=== PATIENT | male | born 1985 | race Two or more races ===

== ENCOUNTER 2018-08-30 17:35 | Observation (INO) | payer OTHER ==
[2018-08-30] MEDS ORDERED: Succinylcholine/Normal Saline 100 MG/5 ML Syringe ONE (17:40)
[2018-08-30] MEDS ORDERED: Rocuronium 50 MG/5 ML Vial ONE (17:40)
[2018-08-30] MEDS ORDERED: Ketorolac 30 MG/ML SDV ONE (17:40)
[2018-08-30] MEDS ORDERED: Ondansetron 4 MG/2 ML SDV ONE (17:40)
[2018-08-30] MEDS ORDERED: Lidocaine 1% 6 ML ONE (17:40)
[2018-08-30] MEDS ORDERED: Lactated Ringers 2,000 ML ONE (17:40)
[2018-08-30] MEDS ORDERED: Propofol 200 MG/20 ML SDV ONE (17:41)
[2018-08-30] MEDS ORDERED: HYDROmorphone 0.5 MG/0.5 ML Syringe ONE (17:41)
[2018-08-30] MEDS ORDERED: Midazolam 1 MG/ML 2 ML SDV ONE (17:41)
[2018-08-30] MEDS ORDERED: fentaNYL 250 MCG/5 ML SDV ONE (17:41)
[2018-08-30] MEDS ORDERED: Sodium Chloride 0.9% 10 ML Syringe FLUSH PRN ×2 (17:48→19:53)
[2018-08-30] MEDS ORDERED: Lidocaine 1%/Sod Bicarbonate in NS 8.4% 1 ML Syringe IDERM PRN (17:48)
[2018-08-30] MEDS ORDERED: metroNIDAZOLE/Normal Saline 500 MG in Premix Bag 1 BAG IV ONE (17:49)
--- NOTE | 2018-08-30 17:51 | PCM.PREANE ---
Preanesthetic Assessment - Anesthesia/Transfusion/Family Hx Anesthesia History: Prior Anesthesia Without Reaction Family History of Anesthesia Reaction: No Transfusion History: No Prior Transfusion(s) Intubation History: Unknown - Review of Systems General: Fatigue, Malaise, Chills Pulmonary: No Symptoms (Smoke: off/on, ETOH: beers every other weekend) Cardiovascular: No Symptoms Gastrointestinal: No Symptoms, Diarrhea Neurological: No Symptoms, Tingling (bilateral fingers) Other: Reports: None (pancreatitis in 2016 with prior history of heavy alcohol consumption.), Diabetes (pre-diabetic: attempting to control with diet and exercise) - Physical Assessment NPO Status Date: 08/30/18 NPO Status Time: 13:00 Pulse: 92 O2 Sat by Pulse Oximetry: 100 Respiratory Rate: 16 Blood Pressure: 131/90 Temperature: 36.7 C Height: 1.78 m Weight: 99.79 kg ASA Class: 2E Mental Status: Alert & Oriented x3 Airway Class: Mallampati = 2 Dentition: Reports: Normal Dentition, Caries Thyro-Mental Finger Breadths: 3 Mouth Opening Finger Breadths: 3 ROM/Head Extension: Full Lungs: Clear to Auscultation, Normal Respiratory Effort Cardiovascular: Regular Rate, Regular Rhythm, No Murmurs - Allergies Allergies/Adverse Reactions: Allergies Allergy/AdvReac Type Severity Reaction Status Date / Time No Known Allergies Allergy Verified 08/30/18 17:53 - Anesthesia Plan Pre-Op Medication Ordered: None - Acknowledgements Anesthesia Type Planned: General Anesthesia Pt an Appropriate Candidate for the Planned Anesthesia: Yes Alternatives and Risks of Anesthesia Discussed w Pt/Guardian: Yes Pt/Guardian Understands and Agrees with Anesthesia Plan: Yes PreAnesthesia Questionnaire - HOME MEDS Home Medications: Home Meds . [No Known Home Meds] 08/30/18 [History] - CURRENT (IN HOUSE) MEDS Current Meds: Current Medications Discontinued Medications Fentanyl (Sublimaze) Confirm Administered Dose 250 mcg .ROUTE .STK-MED ONE Stop: 08/30/18 17:42 Hydromorphone HCl (Dilaudid) Confirm Administered Dose 0.5 mg .ROUTE .STK-MED ONE Stop: 08/30/18 17:42 Lidocaine HCl (Xylocaine-Mpf 1%) Confirm Administered Dose 6 mls @ as directed .ROUTE .STK-MED ONE Stop: 08/30/18 17:41 Lactated Ringer's (Ringers, Lactated) Confirm Administered Dose 2,000 mls @ as directed .ROUTE .STK-MED ONE Stop: 08/30/18 17:41 Ketorolac Tromethamine (Toradol) Confirm Administered Dose 30 mg .ROUTE .STK- MED ONE Stop: 08/30/18 17:41 Midazolam HCl (Versed 1 Mg/Ml) Confirm Administered Dose 2 mg .ROUTE .STK-MED ONE Stop: 08/30/18 17:42 Ondansetron HCl (Zofran) Confirm Administered Dose 4 mg .ROUTE .STK-MED ONE Stop: 08/30/18 17:41 Propofol (Diprivan 20 Ml) Confirm Administered Dose 400 mg .ROUTE .STK-MED ONE Stop: 08/30/18 17:42 Rocuronium [place] (Zemuron) Confirm Administered Dose 50 mg .ROUTE .STK-MED ONE Stop: 08/30/18 17:41 Succinylcholine Chloride (Succinylcholine In Ns Pf) Confirm Administered Dose 100 mg .ROUTE .STK-MED ONE Stop: 08/30/18 17:41
[2018-08-30] MEDS ORDERED: Lactated Ringers 1,000 ML IV SCH (18:00)
[2018-08-30] MEDS ORDERED: diphenhydrAMINE 50 MG/ML SDV IVPUSH PRN (19:31)
[2018-08-30] MEDS ORDERED: Albuterol 0.083% 2.5 MG/3 ML Neb Soln NEB PRN (19:31)
[2018-08-30] MEDS ORDERED: fentaNYL 100 MCG/2 ML SDV IVPUSH PRN (19:31)
[2018-08-30] MEDS ORDERED: Ondansetron 4 MG/2 ML SDV IVPUSH PRN ×2 (19:31→19:56)
[2018-08-30] MEDS ORDERED: ePHEDrine 50 MG/ML SDV IVPUSH PRN (19:31)
[2018-08-30] MEDS ORDERED: HYDROmorphone 0.5 MG/0.5 ML Syringe IVPUSH PRN ×2 (19:31→19:56)
[2018-08-30] MEDS ORDERED: Phenylephrine 1 MG in Sodium Chloride 0.9% 10 ML IV SCH (19:45)
--- NOTE | 2018-08-30 19:52 | PCM.OPNOTE ---
- General Post-Op/Procedure Note Date of Surgery/Procedure: 08/30/18 Operative Procedure(s): I&D hank rectal abscess Pre Op Diagnosis: hank rectal abscess Post-Op Diagnosis: hank rectal abscess Anesthesia Technique: MAC Primary Surgeon: Kingsley Goyal EBL in mLs: 5 Complications: None Condition: Good
[2018-08-30] MEDS ORDERED: Acetaminophen/HYDROcodone 325-5 MG Tab PO PRN (19:58)
--- NOTE | 2018-08-30 19:59 | PCM.POSTAN ---
POST ANESTHESIA ASSESSMENT - MENTAL STATUS Mental Status: Alert - VITAL SIGNS Pulse Rate: 100 SaO2: 99 (2LPM nasal cannula) Resp Rate: 12 Blood Pressure: 138/97 Temperature: 36.9 C - RESPIRATORY Respiratory Status: Respiratory Rate WNL, Airway Patent, O2 Saturation Stable, Supplemental Oxygen - CARDIOVASCULAR CV Status: Pulse Rate WNL, Blood Pressure Stable - GASTROINTESTINAL GI Status: No Symptoms - POST OP HYDRATION Hydration Status: Adequate & Stable
[2018-08-30] MEDS ORDERED: cefOXitin 1 GM in Premix Bag 1 BAG IV SCH (20:00)
[2018-08-30] MEDS ORDERED: metroNIDAZOLE/Normal Saline 500 MG in Premix Bag 1 BAG IV SCH (20:00)
[2018-08-30] MEDS ORDERED: 50% Dextrose in Water 50 ML Syringe IVPUSH PRN (22:33)
--- NOTE | 2018-08-30 22:43 | PCM.CONS ---
H&P History of Present Illness - General Date of Service: 08/30/18 Admit Problem/Dx: Admission Diagnosis/Problem Admission Diagnosis/Problem Perirectal abscess Source of Information: Patient, Family, Provider, RN Notes Reviewed History Limitations: Reports: Physical Impairment, Other - History of Present Illness Initial Comments - Free Text/Narative: This is a 33 yo male who carries a hx/o poorly controlled DM2 who was initially seen at the clinic for hank-rectal abscess and just undergone ID performed by Dr. Goyal. Patient takes Metformin for maintenance medication. He does not know his last A1C and he does not routine check his glucose. His glucose levels on admission are 246 and 259. We are being consult for medical management of his diabetes. Rectal Pain Score (Numeric/FACES): 6 - Related Data Allergies/Adverse Reactions: Allergies Allergy/AdvReac Type Severity Reaction Status Date / Time No Known Allergies Allergy Verified 08/30/18 17:53 Home Medications: Home Meds Acetaminophen/HYDROcodone [[place] 325-5 MG] 1 tab PO Q4H PRN #30 tablet 08/31/18 [Rx] Alogliptin Benzoate [Alogliptin] 25 mg PO DAILY tablet 08/31/18 [Rx] Cholecalciferol (Vitamin D3) [Vitamin D3] 5,000 unit PO DAILY tablet 08/31/18 [ Rx] Lisinopril 10 mg PO DAILY #30 tablet 08/31/18 [Rx] Rosuvastatin [Crestor] 10 mg PO BEDTIME tablet 08/31/18 [Rx] glipiZIDE [Glucotrol XL] 5 mg PO BID tab.er 08/31/18 [Rx] metFORMIN [Glucophage] 500 mg PO WITHDINNER tablet 08/31/18 [Rx] Past Medical History Endocrine/Metabolic History: Reports: Diabetes, Type II, Other (See Below) Other Endocrine/Metabolic History: pancreatitis Social & Family History - Family History Endocrine/Metabolic: Reports: Diabetes, Type I - Tobacco Use Smoking Status *Q: Current Every Day Smoker Years of Tobacco use: 10 Packs/Tins Daily: 0.2 Second Hand Smoke Exposure: No - Caffeine Use Caffeine Use: Reports: None - Recreational Drug Use Recreational Drug Use: No H&P Review of Systems - Review of Systems: Review Of Systems: See Below General: Denies: Fever, Chills, Malaise, Weakness, Fatigue HEENT: Reports: No Symptoms Pulmonary: Denies: Shortness of Breath Cardiovascular: Denies: Chest Pain, Palpitations, Dyspnea on Exertion, Lightheadedness Gastrointestinal: Denies: Abdominal Pain, Nausea, Vomiting Genitourinary: Reports: No Symptoms Musculoskeletal: Reports: No Symptoms Skin: Denies: Cyanosis, Mottled, Pallor, Diaphoresis, Bruising Psychiatric: Denies: Depression, Anxiety, Agitation, Hallucinations Neurological: Denies: Confusion, Difficulty Walking, Weakness, Gait Disturbance Hematologic/Lymphatic: Reports: No Symptoms Immunologic: Reports: No Symptoms Exam - Exam Exam: See Below - Vital Signs Vital Signs: Last Vital Signs Temp 36.3 C 08/30/18 20:50 Pulse 89 08/30/18 20:50 Resp 15 08/30/18 20:50 BP 127/77 08/30/18 20:50 Pulse Ox 95 08/30/18 20:50 Weight: 99.79 kg - Exam General: Alert, Oriented, Cooperative HEENT: Conjunctiva Clear, EACs Clear, EOMI, Hearing Intact, Mucosa Moist & [place] , Nares Patent, Normal Nasal Septum, Posterior Pharynx Clear, Pupils Equal, Pupils Reactive Neck: Supple, Trachea Midline Lungs: Clear to Auscultation, Normal Respiratory Effort Cardiovascular: Regular Rate, Regular Rhythm GI/Abdominal Exam: Normal Bowel Sounds, Soft, Non-Tender, No Organomegaly, No Distention, No Abnormal Bruit, No Mass (Male) Exam: Deferred Rectal (Males) Exam: Deferred Back Exam: Normal Inspection, Decreased Range of Motion Extremities: Normal Inspection, Normal Range of Motion, Non-Tender, No Pedal Edema, Normal Capillary Refill Peripheral Pulses: 3+: Posterior Tibial (L), Posterior Tibial (R), Dorsalis Pedis (L), Dorsalis Pedis (R) Skin: Warm, Dry, Intact Neuro Extensive - Mental Status: Oriented x3, Normal Cognition, Memory Intact Neuro Extensive - Motor, Sensory, Reflexes: CN II-XII Intact (limited but grossly intact). No: Abnormal Gait Psychiatric: Alert, Normal Affect, Normal Mood - Patient Data Lab Results Last 24 hrs: Laboratory Results - last 24 hr 08/30/18 08/30/18 Range/Units 18:44 20:02 POC Glucose 246 H 259 H (70-105) mg/dL Result Diagrams: 08/31/18 06:28 Consult PN Assessment/Plan POD#: 0 Problem List Initiated/Reviewed/Updated: Yes My Orders Last 24 Hours: My Active Orders 08/30/18 22:29 MICROALBUMIN/CREAT RATIO,URINE [URCHEM] Routine 08/30/18 22:31 Consult to Tobacco Packer [Consult to Diabetic Nurse Specialist] [CONS] Routine Consult to Chief Mechanical Engineer [CONS] Routine 08/30/18 22:33 Blood Glucose Check, Bedside [RC] QIDACANDBED Dextrose 50% in Water 50 ml IVPUSH ASDIRECTED PRN 08/31/18 05:11 A1C [GLYCOSYLATED HEMOGLOBIN,HGBA1C] [CHEM] AM CBC WITH AUTO DIFF [HEME] AM LIPID PANEL [CHEM] AM T4 FREE [CHEM] AM TSH [CHEM] AM VITAMIN D,25-HYDROXY [CHEM] AM 08/31/18 07:00 Insulin Lispro [HumaLOG] See Protocol SUBCUT QIDACANDBED 08/31/18 09:00 Alogliptin Benzoate [Alogliptin] 25 mg PO DAILY glipiZIDE [Glucotrol XL] 5 mg PO BID 08/31/18 17:00 metFORMIN [Glucophage] 500 mg PO WITHDINNER Plan: Assessment/Plan: Acute: S/p ID Hank-Rectal Abscess - Defer to Primary Team Hyperglycemia with DM2 - Unknown A1C and does not check BS routinely - Used to be on Metformin but ran out of pills - BS on presentation 246--> 259 - A1C, Lipid panel, Thyroid panel, Urine Microalbumin and Vit D level - Accu-check AC/HS plus low dose ISS - Main treatment for now pending A1C level Biguanide, Sulfonylurea and DDP4 - Dietary and Diabetic Education Class I Obesity - Dietary consult for weight management Active Smoker - Smoker 1/2-1/2 pack a day - Offered Nicotine patch-refused Plan: Optimal control of glucose level at of below 150. If his A1C is at 12, he definitely would need insulin otherwise oral agent should be okay. Dietary and diabetic educators are tomlin players here in understanding his chronic medical illness to prevent further complications down the road. On behalf of the hospitalist team, thank you Dr. Goyal for the opportunity to participate in the management of this patient. We will follow him along with you. Requesting Provider: Dr. Goyal Date Consult Requested: 08/30/18 Reason for Consult: Diabetes Management Patient History Reviewed: Yes Admission H&P Reviewed: Yes Consult Result/Summary:: Uncontrolled Glucose Notified Requestor: Yes Time Spent (in minutes): 30
[2018-08-31] MEDS: Ketorolac 30 MG/ML SDV IVPUSH PRN ×2 (04:17→10:38)
[2018-08-31] MEDS: metroNIDAZOLE/Normal Saline 500 MG in Premix Bag 1 BAG IV SCH ×2 (04:18→11:47)
[2018-08-31] MEDS ORDERED: cefOXitin 1 GM in Premix Bag 1 BAG IV SCH (08:00)
--- NOTE | 2018-08-31 08:16 | OR ---
DATE OF OPERATION: 08/30/2018 SURGEON: Kingsley Goyal MD PREOPERATIVE DIAGNOSIS: Perirectal abscess. POSTOPERATIVE DIAGNOSIS: Perirectal abscess. OPERATION PERFORMED: Incision and drainage. ANESTHESIA: Under general anesthetic. INDICATIONS: The patient has been having severe rectal pain with chills and fever. He is diabetic and has gone off his diabetic medication. His blood sugar is 300. DESCRIPTION OF PROCEDURE: The patient was taken to the operating room, placed in a supine position, connected to the monitoring equipment, and given a general anesthetic. Antibiotics of Flagyl and cefoxitin were given. He was placed in the lithotomy position. The perianal area was prepped and draped off in a sterile fashion. Previous site of his previous drainage where perirectal abscess was also noted to have a small drainage site. An incision was made in this previous area and a pocket was entered. Attempts to identify a fissure were unsuccessful by probing or by inserting hydrogen peroxide. This was then packed with a 0.5-inch Nu Gauze, and this completed the intraoperative procedure. ESTIMATED BLOOD LOSS: 5 mL of blood loss. CONDITION: The patient tolerated the procedure, and was sent to recovery room in a stable condition. PLAN: He will be placed in the hospital observation for better management of his diabetes. LYSSA /[id number]
[2018-08-31 08:27] LABS: HEMOGLOBIN A1C 9.1 % (4.50-6.20)
--- NOTE | 2018-08-31 08:37 | PCM.CONSN ---
- General Info Date of Service: 08/31/18 Admission Dx/Problem (Free Text): Admission Diagnosis/Problem Admission Diagnosis/Problem Perirectal abscess Subjective Update: Follow Up Functional Status: Reports: Pain Controlled, Tolerating Diet, Ambulating, Urinating - Review of Systems General: Denies: Fever, Weakness, Fatigue, Malaise, Chills HEENT: Reports: No Symptoms Pulmonary: Denies: Shortness of Breath Cardiovascular: Denies: Chest Pain, Dyspnea on Exertion, Lightheadedness Gastrointestinal: Denies: Abdominal Pain, Nausea, Vomiting Genitourinary: Reports: No Symptoms Musculoskeletal: Reports: No Symptoms Skin: Denies: Cyanosis, Mottled, Pallor, Diaphoresis, Bruising Neurological: Denies: Confusion, Difficulty Walking, Weakness, Gait Disturbance Psychiatric: Denies: Depression, Mood Lability, Anxiety, Agitation Systems Review Comment:: No overnight or acute issues. He rested well last night. His glucose did not improve much this morning because he did not get anti-hyperglycemia medications last night. However his Vitamin D level is low and his lipid panel is abnormal. His A1C is noted at 9.1. His UA micro level is pending. - Patient Data Vitals - Most Recent: Last Vital Signs Temp 36.4 C 08/31/18 04:11 Pulse 88 08/31/18 04:11 Resp 18 08/31/18 04:11 BP 128/74 08/31/18 04:11 Pulse Ox 98 08/31/18 04:11 Weight - Most Recent: 99.79 kg I&O - Last 24 Hours: Intake & Output 08/30/18 08/31/18 08/31/18 22:59 06:59 14:59 Intake Total 500 500 Output Total 0 Balance 500 500 Lab Results Last 24 Hours: Laboratory Results - last 24 hr 08/30/18 08/30/18 08/31/18 Range/Units 18:44 20:02 00:28 WBC (4.23-9.07) K/mm3 RBC (4.63-6.08) M/mm3 Hgb (13.7-17.5) gm/L Hct (40.1-51.0) % MCV (79.0-92.2) fl MCH (25.7-32.2) pg MCHC (32.2-35.5) g/dl RDW Std Deviation (35.1-43.9) fL Plt Count (163-337) K/mm3 MPV (9.4-12.3) fl Neut % (Auto) (34.0-67.9) % Lymph % (Auto) (21.8-53.1) % [place] % (Auto) (5.3-12.2) % Eos % (Auto) (0.8-7.0) Baso % (Auto) (0.1-1.2) % Neut # (Auto) (1.78-5.38) K/mm3 Lymph # (Auto) (1.32-3.57) K/mm3 [place] # (Auto) (0.30-0.82) K/mm3 Eos # (Auto) (0.04-0.54) K/mm3 Baso # (Auto) (0.01-0.08) K/mm3 POC Glucose 246 H 259 H 212 H (70-105) mg/dL Hemoglobin A1c (4.50-6.20) % Triglycerides (<150) mg/dL Cholesterol (<200) mg/dL LDL Cholesterol Direct (<100) mg/dL HDL Cholesterol (40-59) mg/dL Vitamin D 25-Hydroxy (30.0-100.0) ng/ml Free T4 (0.76-1.46) ng/dL TSH 3rd Generation (0.358-3.74) uIU/mL 08/31/18 08/31/18 08/31/18 Range/Units 06:04 06:28 06:28 WBC (4.23-9.07) K/mm3 RBC (4.63-6.08) M/mm3 Hgb (13.7-17.5) gm/L Hct (40.1-51.0) % MCV (79.0-92.2) fl MCH (25.7-32.2) pg MCHC (32.2-35.5) g/dl RDW Std Deviation (35.1-43.9) fL Plt Count (163-337) K/mm3 MPV (9.4-12.3) fl Neut % (Auto) (34.0-67.9) % Lymph % (Auto) (21.8-53.1) % [place] % (Auto) (5.3-12.2) % Eos % (Auto) (0.8-7.0) Baso % (Auto) (0.1-1.2) % Neut # (Auto) (1.78-5.38) K/mm3 Lymph # (Auto) (1.32-3.57) K/mm3 [place] # (Auto) (0.30-0.82) K/mm3 Eos # (Auto) (0.04-0.54) K/mm3 Baso # (Auto) (0.01-0.08) K/mm3 POC Glucose 252 H (70-105) mg/dL Hemoglobin A1c 9.10 H (4.50-6.20) % Triglycerides 788 H (<150) mg/dL Cholesterol 211 H (<200) mg/dL LDL Cholesterol Direct 71 (<100) mg/dL HDL Cholesterol 25.0 L (40-59) mg/dL Vitamin D 25-Hydroxy 9.0 L (30.0-100.0) ng/ml Free T4 1.08 (0.76-1.46) ng/dL TSH 3rd Generation 1.014 (0.358-3.74) uIU/mL 08/31/18 Range/Units 06:28 WBC 9.91 H (4.23-9.07) K/mm3 RBC 5.15 (4.63-6.08) M/mm3 Hgb 15.3 (13.7-17.5) gm/L Hct 43.6 (40.1-51.0) % MCV 84.7 (79.0-92.2) fl MCH 29.7 (25.7-32.2) pg MCHC 35.1 (32.2-35.5) g/dl RDW Std Deviation 37.7 (35.1-43.9) fL Plt Count 149 L (163-337) K/mm3 MPV 11.3 (9.4-12.3) fl Neut % (Auto) 74.4 H (34.0-67.9) % Lymph % (Auto) 18.1 L (21.8-53.1) % [place] % (Auto) 6.3 (5.3-12.2) % Eos % (Auto) 0.8 (0.8-7.0) Baso % (Auto) 0.1 (0.1-1.2) % Neut # (Auto) 7.38 H (1.78-5.38) K/mm3 Lymph # (Auto) 1.79 (1.32-3.57) K/mm3 [place] # (Auto) 0.62 (0.30-0.82) K/mm3 Eos # (Auto) 0.08 (0.04-0.54) K/mm3 Baso # (Auto) 0.01 (0.01-0.08) K/mm3 POC Glucose (70-105) mg/dL Hemoglobin A1c (4.50-6.20) % Triglycerides (<150) mg/dL Cholesterol (<200) mg/dL LDL Cholesterol Direct (<100) mg/dL HDL Cholesterol (40-59) mg/dL Vitamin D 25-Hydroxy (30.0-100.0) ng/ml Free T4 (0.76-1.46) ng/dL TSH 3rd Generation (0.358-3.74) uIU/mL Med Orders - Current: Current Medications Hydrocodone Bitart/Acetaminophen ([place] 325-5 Mg) 1 tab PO Q4H PRN PRN Reason: Pain Alogliptin Benzoate (Alogliptin) 25 mg PO DAILY [facility] Cholecalciferol (Vitamin D3) 5,000 unit PO DAILY [facility] Dextrose/Water (Dextrose 50% In Water) 50 ml IVPUSH ASDIRECTED PRN PRN Reason: Hypoglycemia Glipizide (Glucotrol Xl) 5 mg PO BID [facility] Hydromorphone HCl (Dilaudid) 0.5 mg IVPUSH Q2H PRN PRN Reason: Pain Cefoxitin Sodium 1 gm/ Premix 50 mls @ 100 mls/hr IV Q8H [facility] Metronidazole 500 mg/ Premix 100 mls @ 100 mls/hr IV Q8H [facility] Last Admin: 08/31/18 04:18 Dose: 100 mls/hr Insulin Human Lispro (Humalog) 0 unit SUBCUT QIDACANDBED [facility]; Protocol Ketorolac Tromethamine (Toradol) 30 mg IVPUSH Q6H PRN PRN Reason: Pain Last Admin: 08/31/18 04:17 Dose: 30 mg Metformin HCl (Glucophage) 500 mg PO WITHDINNER [facility] Ondansetron HCl (Zofran) 4 mg IVPUSH Q8H PRN PRN Reason: Nausea Rosuvastatin Calcium (Crestor) 10 mg PO BEDTIME IV[facility] Sodium Chloride (Saline Flush) 10 ml FLUSH ASDIRECTED PRN PRN Reason: Keep Vein Open Discontinued Medications Albuterol (Proventil Neb Soln) 2.5 mg NEB ONETIME PRN PRN Reason: improve oxygenation Diphenhydramine HCl (Benadryl) 25 mg IVPUSH Q6H PRN PRN Reason: pruritis Ephedrine Sulfate (Ephedrine Sulfate) 5 mg IVPUSH ASDIRECTED PRN PRN Reason: Hypotension Fentanyl (Sublimaze) Confirm Administered Dose 250 mcg .ROUTE .STK-MED ONE Stop: 08/30/18 17:42 Fentanyl (Sublimaze) 50 mcg IVPUSH Q5M PRN PRN Reason: Pain Hydromorphone HCl (Dilaudid) Confirm Administered Dose 0.5 mg .ROUTE .STK-MED ONE Stop: 08/30/18 17:42 Hydromorphone HCl (Dilaudid) 0.5 mg IVPUSH Q15M PRN PRN Reason: Pain (severe 7-10) Lidocaine HCl (Xylocaine-Mpf 1%) Confirm Administered Dose 6 mls @ as directed .ROUTE .STK-MED ONE Stop: 08/30/18 17:41 Lactated Ringer's (Ringers, Lactated) Confirm Administered Dose 2,000 mls @ as directed .ROUTE .STK-MED ONE Stop: 08/30/18 17:41 Lactated Ringer's (Ringers, Lactated) 1,000 mls @ 125 mls/hr IV ASDIRECTED [facility] Last Admin: 08/31/18 00:12 Dose: 125 mls/hr Metronidazole 500 mg/ Premix 100 mls @ 100 mls/hr IV ONETIME ONE Stop: 08/30/18 18:48 Last Admin: 08/31/18 00:41 Dose: Not Given Phenylephrine HCl 1 mg/ Sodium (Chloride) 10.1 mls @ 1 mls/sec IV TITRATE IVIS; Protocol Cefoxitin Sodium (Mefoxin In Dextrose,Iso-Osm 2 Gm/50 Ml) Confirm Administered Dose 50 mls @ as directed .ROUTE .STK-MED ONE Stop: 08/30/18 19:34 Metronidazole 500 mg/ Premix 100 mls @ 100 mls/hr IV Q8H [facility] Last Admin: 08/31/18 00:40 Dose: Not Given Cefoxitin Sodium 1 gm/ Premix 50 mls @ 100 mls/hr IV Q8H [facility] Last Admin: 08/31/18 00:11 Dose: 100 mls/hr Ketorolac Tromethamine (Toradol) Confirm Administered Dose 30 mg .ROUTE .STK- MED ONE Stop: 08/30/18 17:41 Lidocaine/Sodium Bicarbonate (Buffered Lidocaine 1% In Ns 8.4%) 0.25 ml IDERM ONETIME PRN PRN Reason: Prior to IV Start Midazolam HCl (Versed 1 Mg/Ml) Confirm Administered Dose 2 mg .ROUTE .STK-MED ONE Stop: 08/30/18 17:42 Ondansetron HCl (Zofran) Confirm Administered Dose 4 mg .ROUTE .STK-MED ONE Stop: 08/30/18 17:41 Ondansetron HCl (Zofran) 4 mg IVPUSH ONETIME PRN PRN Reason: Nausea/Vomiting Propofol (Diprivan 20 Ml) Confirm Administered Dose 400 mg .ROUTE .STK-MED ONE Stop: 08/30/18 17:42 Rocuronium [place] (Zemuron) Confirm Administered Dose 50 mg .ROUTE .STK-MED ONE Stop: 08/30/18 17:41 Sodium Chloride (Saline Flush) 10 ml FLUSH ASDIRECTED PRN PRN Reason: Keep Vein Open Succinylcholine Chloride (Succinylcholine In Ns Pf) Confirm Administered Dose 100 mg .ROUTE .STK-MED ONE Stop: 08/30/18 17:41 - Exam General: Alert, Oriented, Cooperative, No Acute Distress HEENT: Pupils Equal, Pupils Reactive, EOMI, Mucous Membr. Moist/[place] Neck: Supple Lungs: Clear to Auscultation, Normal Respiratory Effort Cardiovascular: Regular Rate, Regular Rhythm GI/Abdominal Exam: Normal Bowel Sounds, Soft, Non-Tender, No Organomegaly, No Distention, No Abnormal Bruit, No Mass (Male) Exam: Deferred Back Exam: Normal Inspection, Full Range of Motion Extremities: Normal Inspection, Normal Range of Motion, Non-Tender, No Pedal Edema, Normal Capillary Refill Peripheral Pulses: 3+: Dorsalis Pedis (L), Dorsalis Pedis (R) Skin: Warm, Dry, Intact Wound/Incisions: Healing Well, Dressing Dry and Intact, Erythema, Other (right hank-rectal abscess) Neurological: No New Focal Deficit, Normal Gait Psy/Mental Status: Alert, Normal Affect, Normal Mood Consult PN Assessment/Plan POD#: 1 Problem List Initiated/Reviewed/Updated: Yes My Orders Last 24 Hours: My Active Orders 08/30/18 22:29 MICROALBUMIN/CREAT RATIO,URINE [URCHEM] Routine 08/30/18 22:31 Consult to Marine Extension Agent [Consult to Diabetic Nurse Specialist] [CONS] Routine Consult to Valve Pipe Irrigator [CONS] Routine 08/30/18 22:33 Blood Glucose Check, Bedside [RC] QIDACANDBED Dextrose 50% in Water 50 ml IVPUSH ASDIRECTED PRN 08/31/18 07:00 Insulin Lispro [HumaLOG] See Protocol SUBCUT QIDACANDBED 08/31/18 09:00 Alogliptin Benzoate [Alogliptin] 25 mg PO DAILY Cholecalciferol (Vitamin D3) [Vitamin D3] 5,000 unit PO DAILY glipiZIDE [Glucotrol XL] 5 mg PO BID 08/31/18 17:00 metFORMIN [Glucophage] 500 mg PO WITHDINNER 08/31/18 21:00 Rosuvastatin [Crestor] 10 mg PO BEDTIME Plan: Assessment/Plan: Acute: S/p ID Hank-Rectal Abscess - POD #1 - Defer to Primary Team Hyperglycemia with DM2 - Unknown A1C and does not check BS routinely - Used to be on Metformin but ran out of pills - BS on presentation 246--> 259-->212-->252 - A1Cis 9.10 - Lipid panel- Abnormal - Thyroid panel- normal - Urine Microalbumin- pending - Vit D level- 9 (very low) - Accu-check AC/HS plus low dose ISS - Main treatment for now pending A1C level Biguanide, Sulfonylurea and DDP4 - Dietary and Diabetic Education Vitamin D Deficiency - Supplement 1 tab po daily HLD - Crestor 10 mg po Bedtime - AHA diet - Dietary consult Class I Obesity - Dietary consult for weight management Active Smoker - Smoker 1/2-1/2 pack a day - Counseled smoking cessation - Offered Nicotine patch-refused Plan: Continue current treatment as above. Goal with BS is at 150 or <. If going home today, we will help with discharge care plan. Patient needs PCP for outpatient follow up.
[2018-08-31] MEDS ORDERED: glipiZIDE 5 MG Tab.ER PO SCH (09:00)
[2018-08-31] MEDS ORDERED: Cholecalciferol (Vitamin D3) 5,000 UNIT Tab PO SCH (09:00)
[2018-08-31] MEDS ORDERED: 50% Dextrose in Water 50 ML SDV IV PRN (09:01)
[2018-08-31] MEDS: Insulin Lispro 100 Units/ML 3 ML Vial SUBCUT SCH ×2 (09:19→11:48)
--- NOTE | 2018-08-31 10:43 | PCM.SURGPN ---
- General Info Date of Service: 08/31/18 - Patient Data Vitals - Most Recent: Last Vital Signs Temp 97.5 F 08/31/18 04:11 Pulse 88 08/31/18 04:11 Resp 18 08/31/18 04:11 BP 127/77 08/31/18 08:49 Pulse Ox 98 08/31/18 04:11 Weight - Most Recent: 98.656 kg I&O - Last 24 Hours: Intake & Output 08/30/18 08/31/18 08/31/18 23:59 07:59 15:59 Intake Total 500 500 Output Total 0 800 Balance 500 500 -800 Lab Results Last 24 Hrs: Laboratory Results - last 24 hr 08/30/18 08/30/18 08/31/18 Range/Units 18:44 20:02 00:28 WBC (4.23-9.07) K/mm3 RBC (4.63-6.08) M/mm3 Hgb (13.7-17.5) gm/L Hct (40.1-51.0) % MCV (79.0-92.2) fl MCH (25.7-32.2) pg MCHC (32.2-35.5) g/dl RDW Std Deviation (35.1-43.9) fL Plt Count (163-337) K/mm3 MPV (9.4-12.3) fl Neut % (Auto) (34.0-67.9) % Lymph % (Auto) (21.8-53.1) % [place] % (Auto) (5.3-12.2) % Eos % (Auto) (0.8-7.0) Baso % (Auto) (0.1-1.2) % Neut # (Auto) (1.78-5.38) K/mm3 Lymph # (Auto) (1.32-3.57) K/mm3 [place] # (Auto) (0.30-0.82) K/mm3 Eos # (Auto) (0.04-0.54) K/mm3 Baso # (Auto) (0.01-0.08) K/mm3 POC Glucose 246 H 259 H 212 H (70-105) mg/dL Hemoglobin A1c (4.50-6.20) % Triglycerides (<150) mg/dL Cholesterol (<200) mg/dL LDL Cholesterol Direct (<100) mg/dL HDL Cholesterol (40-59) mg/dL Vitamin D 25-Hydroxy (30.0-100.0) ng/ml Free T4 (0.76-1.46) ng/dL TSH 3rd Generation (0.358-3.74) uIU/mL Ur Random Creatinine (30.0-125.0) mg/dL Ur Random Microalbumin (1.3-20.0) mg/L Microalb/Creat Ratio (0-30) mg/g 08/31/18 08/31/18 08/31/18 Range/Units 06:04 06:28 06:28 WBC (4.23-9.07) K/mm3 RBC (4.63-6.08) M/mm3 Hgb (13.7-17.5) gm/L Hct (40.1-51.0) % MCV (79.0-92.2) fl MCH (25.7-32.2) pg MCHC (32.2-35.5) g/dl RDW Std Deviation (35.1-43.9) fL Plt Count (163-337) K/mm3 MPV (9.4-12.3) fl Neut % (Auto) (34.0-67.9) % Lymph % (Auto) (21.8-53.1) % [place] % (Auto) (5.3-12.2) % Eos % (Auto) (0.8-7.0) Baso % (Auto) (0.1-1.2) % Neut # (Auto) (1.78-5.38) K/mm3 Lymph # (Auto) (1.32-3.57) K/mm3 [place] # (Auto) (0.30-0.82) K/mm3 Eos # (Auto) (0.04-0.54) K/mm3 Baso # (Auto) (0.01-0.08) K/mm3 POC Glucose 252 H (70-105) mg/dL Hemoglobin A1c 9.10 H (4.50-6.20) % Triglycerides 788 H (<150) mg/dL Cholesterol 211 H (<200) mg/dL LDL Cholesterol Direct 71 (<100) mg/dL HDL Cholesterol 25.0 L (40-59) mg/dL Vitamin D 25-Hydroxy 9.0 L (30.0-100.0) ng/ml Free T4 1.08 (0.76-1.46) ng/dL TSH 3rd Generation 1.014 (0.358-3.74) uIU/mL Ur Random Creatinine (30.0-125.0) mg/dL Ur Random Microalbumin (1.3-20.0) mg/L Microalb/Creat Ratio (0-30) mg/g 08/31/18 08/31/18 Range/Units 06:28 09:00 WBC 9.91 H (4.23-9.07) K/mm3 RBC 5.15 (4.63-6.08) M/mm3 Hgb 15.3 (13.7-17.5) gm/L Hct 43.6 (40.1-51.0) % MCV 84.7 (79.0-92.2) fl MCH 29.7 (25.7-32.2) pg MCHC 35.1 (32.2-35.5) g/dl RDW Std Deviation 37.7 (35.1-43.9) fL Plt Count 149 L (163-337) K/mm3 MPV 11.3 (9.4-12.3) fl Neut % (Auto) 74.4 H (34.0-67.9) % Lymph % (Auto) 18.1 L (21.8-53.1) % [place] % (Auto) 6.3 (5.3-12.2) % Eos % (Auto) 0.8 (0.8-7.0) Baso % (Auto) 0.1 (0.1-1.2) % Neut # (Auto) 7.38 H (1.78-5.38) K/mm3 Lymph # (Auto) 1.79 (1.32-3.57) K/mm3 [place] # (Auto) 0.62 (0.30-0.82) K/mm3 Eos # (Auto) 0.08 (0.04-0.54) K/mm3 Baso # (Auto) 0.01 (0.01-0.08) K/mm3 POC Glucose (70-105) mg/dL Hemoglobin A1c (4.50-6.20) % Triglycerides (<150) mg/dL Cholesterol (<200) mg/dL LDL Cholesterol Direct (<100) mg/dL HDL Cholesterol (40-59) mg/dL Vitamin D 25-Hydroxy (30.0-100.0) ng/ml Free T4 (0.76-1.46) ng/dL TSH 3rd Generation (0.358-3.74) uIU/mL Ur Random Creatinine 172.5 H (30.0-125.0) mg/dL Ur Random Microalbumin 91.4 H (1.3-20.0) mg/L Microalb/Creat Ratio 52.9 H (0-30) mg/g Med Orders - Current: Current Medications Hydrocodone Bitart/Acetaminophen ([place] 325-5 Mg) 1 tab PO Q4H PRN PRN Reason: Pain Alogliptin Benzoate (Alogliptin) 25 mg PO DAILY [facility] Last Admin: 08/31/18 08:53 Dose: 25 mg Cholecalciferol (Vitamin D3) 5,000 unit PO DAILY [facility] Last Admin: 08/31/18 09:19 Dose: 5,000 unit Dextrose/Water (Dextrose 50% In Water) 50 ml IV ASDIRECTED PRN PRN Reason: Hypoglycemia Glipizide (Glucotrol Xl) 5 mg PO BID [facility] Last Admin: 08/31/18 08:53 Dose: 5 mg Hydromorphone HCl (Dilaudid) 0.5 mg IVPUSH Q2H PRN PRN Reason: Pain Cefoxitin Sodium 1 gm/ Premix 50 mls @ 100 mls/hr IV Q8H [facility] Last Admin: 08/31/18 08:50 Dose: 100 mls/hr Metronidazole 500 mg/ Premix 100 mls @ 100 mls/hr IV Q8H [facility] Last Admin: 08/31/18 04:18 Dose: 100 mls/hr Insulin Human Lispro (Humalog) 0 unit SUBCUT QIDACANDBED [facility]; Protocol Last Admin: 08/31/18 09:19 Dose: 3 units Ketorolac Tromethamine (Toradol) 30 mg IVPUSH Q6H PRN PRN Reason: Pain Last Admin: 08/31/18 04:17 Dose: 30 mg Metformin HCl (Glucophage) [facility] Ondansetron HCl (Zofran) 4 mg IVPUSH Q8H PRN PRN Reason: Nausea Rosuvastatin Calcium (Crestor) 10 mg PO BEDTIME IVIS Sodium Chloride (Saline Flush) 10 ml FLUSH ASDIRECTED PRN PRN Reason: Keep Vein Open Discontinued Medications Albuterol (Proventil Neb Soln) 2.5 mg NEB ONETIME PRN PRN Reason: improve oxygenation Dextrose/Water (Dextrose 50% In Water) 50 ml IVPUSH ASDIRECTED PRN PRN Reason: Hypoglycemia Diphenhydramine HCl (Benadryl) 25 mg IVPUSH Q6H PRN PRN Reason: pruritis Ephedrine Sulfate (Ephedrine Sulfate) 5 mg IVPUSH ASDIRECTED PRN PRN Reason: Hypotension Fentanyl (Sublimaze) Confirm Administered Dose 250 mcg .ROUTE .STK-MED ONE Stop: 08/30/18 17:42 Fentanyl (Sublimaze) 50 mcg IVPUSH Q5M PRN PRN Reason: Pain Hydromorphone HCl (Dilaudid) Confirm Administered Dose 0.5 mg .ROUTE .STK-MED ONE Stop: 08/30/18 17:42 Hydromorphone HCl (Dilaudid) 0.5 mg IVPUSH Q15M PRN PRN Reason: Pain (severe 7-10) Lidocaine HCl (Xylocaine-Mpf 1%) Confirm Administered Dose 6 mls @ as directed .ROUTE .STK-MED ONE Stop: 08/30/18 17:41 Lactated Ringer's (Ringers, Lactated) Confirm Administered Dose 2,000 mls @ as directed .ROUTE .STK-MED ONE Stop: 08/30/18 17:41 Lactated Ringer's (Ringers, Lactated) 1,000 mls @ 125 mls/hr IV ASDIRECTED IVIS Last Admin: 08/31/18 00:12 Dose: 125 mls/hr Metronidazole 500 mg/ Premix 100 mls @ 100 mls/hr IV ONETIME ONE Stop: 08/30/18 18:48 Last Admin: 08/31/18 00:41 Dose: Not Given Phenylephrine HCl 1 mg/ Sodium (Chloride) 10.1 mls @ 1 mls/sec IV TITRATE IVIS; Protocol Cefoxitin Sodium (Mefoxin In Dextrose,Iso-Osm 2 Gm/50 Ml) Confirm Administered Dose 50 mls @ as directed .ROUTE .STK-MED ONE Stop: 08/30/18 19:34 Metronidazole 500 mg/ Premix 100 mls @ 100 mls/hr IV Q8H [facility] Last Admin: 08/31/18 00:40 Dose: Not Given Cefoxitin Sodium 1 gm/ Premix 50 mls @ 100 mls/hr IV Q8H [facility] Last Admin: 08/31/18 00:11 Dose: 100 mls/hr Ketorolac Tromethamine (Toradol) Confirm Administered Dose 30 mg .ROUTE .STK- MED ONE Stop: 08/30/18 17:41 Lidocaine/Sodium Bicarbonate (Buffered Lidocaine 1% In Ns 8.4%) 0.25 ml IDERM ONETIME PRN PRN Reason: Prior to IV Start Midazolam HCl (Versed 1 Mg/Ml) Confirm Administered Dose 2 mg .ROUTE .STK-MED ONE Stop: 08/30/18 17:42 Ondansetron HCl (Zofran) Confirm Administered Dose 4 mg .ROUTE .STK-MED ONE Stop: 08/30/18 17:41 Ondansetron HCl (Zofran) 4 mg IVPUSH ONETIME PRN PRN Reason: Nausea/Vomiting Propofol (Diprivan 20 Ml) Confirm Administered Dose 400 mg .ROUTE .STK-MED ONE Stop: 08/30/18 17:42 Rocuronium [place] (Zemuron) Confirm Administered Dose 50 mg .ROUTE .STK-MED ONE Stop: 08/30/18 17:41 Sodium Chloride (Saline Flush) 10 ml FLUSH ASDIRECTED PRN PRN Reason: Keep Vein Open Succinylcholine Chloride (Succinylcholine In Ns Pf) Confirm Administered Dose 100 mg .ROUTE .STK-MED ONE Stop: 08/30/18 17:41 - Problem List Review Problem List Initiated/Reviewed/Updated: Yes - My Orders Last 24 Hours: Active Orders 24 hr Category Date Time Status Patient Status [ADT] Stat ADT 08/30/18 19:53 Active Ambulate [RC] ASDIRECTED Care 08/30/18 19:54 Active Blood Glucose Check, Bedside [RC] ONETIME Care 08/30/18 18:40 Active Blood Glucose Check, Bedside [RC] ONETIME Care 08/30/18 19:30 Active Blood Glucose Check, Bedside [RC] QIDACANDBED Care 08/30/18 19:55 Active Blood Glucose Check, Bedside [RC] QIDACANDBED Care 08/30/18 22:33 Active Communication Order [RC] ROUTINE Care 08/30/18 19:30 Inactive Cooling Warming Measures [RC] ASDIRECTED Care 08/30/18 19:30 Active Notify Provider Consults [RC] ASDIRECTED Care 08/30/18 20:00 Active Notify Provider [RC] ASDIRECTED Care 08/30/18 19:31 Active Oxygen Therapy [RC] ASDIRECTED Care 08/30/18 19:30 Active Pulse Oximetry [RC] ASDIRECTED Care 08/30/18 19:30 Active RT Aerosol Therapy [RC] ASDIRECTED Care 08/30/18 19:32 Active Turn, Cough, Deep Breathe [RC] .PRN Care 08/30/18 19:54 Active Verify Patient Consent Obtain [RC] ASDIRECTED Care 08/30/18 17:49 Active Vital Signs [RC] 03,09,15,21 Care 08/31/18 01:04 Active Vital Signs [RC] Q4HR Care 08/30/18 19:30 Inactive Consult to Firmware Manager [Consult to Diabetic Nurse Cons 08/30/18 22:31 Active Specialist] [CONS] Routine Consult to Equity Research Analyst [CONS] Routine Cons 08/30/18 22:31 Active Consult to Physician [CONS] Urgent Cons 08/30/18 20:00 Active [employer] Diet [DIET] Diet 08/31/18 Breakfast Active Acetaminophen/HYDROcodone [[place] 325-5 MG] Med 08/30/18 19:58 Active 1 tab PO Q4H PRN Alogliptin Benzoate [Alogliptin] Med 08/31/18 09:00 Active 25 mg PO DAILY Cholecalciferol (Vitamin D3) [Vitamin D3] Med 08/31/18 09:00 Active 5,000 unit PO DAILY Dextrose 50% in Water Med 08/31/18 09:01 Active 50 ml IV ASDIRECTED PRN HYDROmorphone [Dilaudid] Med 08/30/18 19:56 Active 0.5 mg IVPUSH Q2H PRN Insulin Lispro [HumaLOG] Med 08/31/18 07:00 Active See Protocol SUBCUT QIDACANDBED Ketorolac [Toradol] Med 08/30/18 19:57 Active 30 mg IVPUSH Q6H PRN Ondansetron [Zofran] Med 08/30/18 19:56 Active 4 mg IVPUSH Q8H PRN Rosuvastatin [Crestor] Med 08/31/18 21:00 Active 10 mg PO BEDTIME Sodium Chloride 0.9% [Saline Flush] Med 08/30/18 19:53 Active 10 ml FLUSH ASDIRECTED PRN cefOXitin [Mefoxin in Dextrose,Iso-Osm 1 GM/50 ML] 1 gm Med 08/31/18 08:00 Active Premix Bag 1 bag IV Q8H glipiZIDE [Glucotrol XL] Med 08/31/18 09:00 Active 5 mg PO BID metFORMIN [Glucophage] Med 08/31/18 17:00 Active 500 mg PO WITHDINNER metroNIDAZOLE/Normal Saline [Flagyl 500 MG in NS 100 ML Med 08/31/18 04:00 Active ] 500 mg Premix Bag 1 bag IV Q8H Convert IV to Saline Lock [OM.PC] Routine Oth 08/30/18 19:54 Ordered Medication Administration Instruction [OM.PC] Routine Oth 08/30/18 17:49 Ordered Peripheral IV Insertion Adult [OM.PC] Routine Oth 08/30/18 17:49 Ordered Schedule Procedure [COMM] Stat Oth 08/30/18 17:53 Ordered Sitz Bath [OM.PC] Routine Oth 08/30/18 19:55 Ordered Code Status [Resuscitation Status] Routine Resus Stat 08/31/18 03:02 Ordered EKG 12 Lead [EK] Stat Ther 08/30/18 18:40 Ordered Medication Orders Hydrocodone Bitart/Acetaminophen ([place] 325-5 Mg) 1 tab PO Q4H PRN PRN Reason: Pain Alogliptin Benzoate (Alogliptin) 25 mg PO DAILY [facility] Last Admin: 08/31/18 08:53 Dose: 25 mg Cholecalciferol (Vitamin D3) 5,000 unit PO DAILY [facility] Last Admin: 08/31/18 09:19 Dose: 5,000 unit Dextrose/Water (Dextrose 50% In Water) 50 ml IV ASDIRECTED PRN PRN Reason: Hypoglycemia Glipizide (Glucotrol Xl) 5 mg PO BID [facility] Last Admin: 08/31/18 08:53 Dose: 5 mg Hydromorphone HCl (Dilaudid) 0.5 mg IVPUSH Q2H PRN PRN Reason: Pain Cefoxitin Sodium 1 gm/ Premix 50 mls @ 100 mls/hr IV Q8H [facility] Last Admin: 08/31/18 08:50 Dose: 100 mls/hr Metronidazole 500 mg/ Premix 100 mls @ 100 mls/hr IV Q8H [facility] Last Admin: 08/31/18 04:18 Dose: 100 mls/hr Insulin Human Lispro (Humalog) 0 unit SUBCUT QIDACANDBED [facility]; Protocol Last Admin: 08/31/18 09:19 Dose: 3 units Ketorolac Tromethamine (Toradol) 30 mg IVPUSH Q6H PRN PRN Reason: Pain Last Admin: 08/31/18 04:17 Dose: 30 mg Metformin HCl (Glucophage) 500 mg PO WITHDINNER [facility] Ondansetron HCl (Zofran) 4 mg IVPUSH Q8H PRN PRN Reason: Nausea Rosuvastatin Calcium (Crestor) 10 mg PO BEDTIME [facility] Sodium Chloride (Saline Flush) 10 ml FLUSH ASDIRECTED PRN PRN Reason: Keep Vein Open - Plan Plan (Free Text/Narrative):: doing well instructed in wound care no pain chills or fever surgical site examed ass improved plan discharge dictated JMB
--- NOTE | 2018-08-31 11:44 | PCM48HPAN ---
Post Anesthesia Note - EVALUATION WITHIN 48HRS OF ANESTHETIC Vital Signs in Normal Range: Yes Patient Participated in Evaluation: Yes Respiratory Function Stable: Yes Airway Patent: Yes Cardiovascular Function Stable: Yes Hydration Status Stable: Yes Pain Control Satisfactory: Yes Nausea and Vomiting Control Satisfactory: Yes Mental Status Recovered: Yes
[2018-08-31] MEDS ORDERED: metFORMIN 500 MG Tab PO SCH (17:00)
[2018-08-31] MEDS ORDERED: Rosuvastatin 10 MG Tab PO SCH (21:00)
--- NOTE | 2018-09-01 05:47 | DISCH ---
ADMISSION DATE: 08/30/2018 DISCHARGE DATE: 08/31/2018 HOSPITAL COURSE: This is a 33-year-old male who has been having drainage and a small amount of pus in a shorts for about a month and then about the last 2 to 3 days, he has been having increased drainage and pressure and severe pain in the anal area with chills and fever. He had I and D of perirectal abscess approximately 3 years ago. He is also a diabetic and has gone off his medication. His blood sugars in the clinic were 300. PHYSICAL EXAMINATION: GENERAL: Exam at the time of admission revealed alert and cooperative male. EYES: Unremarkable. NECK: Supple. LUNGS: Clear. HEART: Heart tones are regular. ABDOMEN: Soft. GENITOURINARY: Perianal area showed extreme tenderness around the previous site of I and D perirectal abscess. The patient was diagnosed with perirectal abscess, chills and fever and uncontrolled diabetes. He was brought to the operating room for emergency procedure because of his chills and fever, elevated blood sugar and I and D of a perirectal abscess was performed, it was packed open. He was placed in the hospital overnight for observation. Consultation done by Dr. Barth, who noted his A1c was up and he had been taking his medication that he can back on his oral hypoglycemics; Glucotrol 5 mg p.o. b.i.d. and metformin 500 mg p.o. with dinner, and Crestor 10 mg at bedtime. Follow up with diabetic counselor and Dr. Washburn and myself. He was instructed wound care recommendation. No work at this time and Pain Med instructed how to pull out the dressing a little bit each day and after shower. We will give pain medications of hydrocodone with Tylenol. CONDITION ON DISCHARGE: Improved. DIET: Diabetic diet. FINAL DIAGNOSIS: DISCHARGE MEDICATIONS: ACTIVITY: FOLLOW-UP: MMODAL /[id number]
== END 2018-08-31 15:30 | disposition home or self-care (01) ==
LOC: JD.ED 17:35 → JD.SDS 18:24 → JD.MS 19:53
PROVIDERS: ADMIT Surgery; ATTEND Surgery
DX: K61.1 Rectal abscess (principal); E11.65 Type 2 diabetes mellitus with hyperglycemia; E55.9 Vitamin D deficiency, unspecified; E78.5 Hyperlipidemia, unspecified; E66.9 Obesity, unspecified; Z68.31 Body mass index [BMI] 31.0-31.9, adult; Z87.891 Personal history of nicotine dependence; Z79.84 Long term (current) use of oral hypoglycemic drugs
CPT/HCPCS: 36415; 46040; 80061; 82043; 82306; 82962; 83036; 84439; 84443; 85025; 93005; 99284; A9270; G0378; J0330; J0694; J1170; J1815; J1885; J2001; J2250; J2405; J2704; J3010; J3490; J7120; 00902

== ENCOUNTER 2018-10-25 15:34 | Day surgery (SDC) | payer MEDICAID, OTHER ==
--- NOTE | 2018-10-25 15:56 | EDM.PDOC ---
ED HPI GENERAL MEDICAL PROBLEM - General Chief Complaint: Skin Complaint Stated Complaint: PERIANAL ABSCESS Time Seen by Provider: 10/25/18 15:45 Source of Information: Reports: Patient, Family History Limitations: Reports: No Limitations - History of Present Illness INITIAL COMMENTS - FREE TEXT/NARRATIVE: The patient presents with a perirectal abscess. This is the 3rd time dealing with this and it is much worse then before. The 1st time he had an issue was in 2015. He had it surgically drained and then and he had it happen again in August of this year and Dr Goyal took him to the OR and surgically drained it. He said the area would drain at times and for the past few days it stopped draining and he has more swelling and pain. This is the worst it has ever been. He had a low grade fever at home. He has no abdominal pain, nausea or vomiting. The abscess is on the left buttock. Onset: Gradual Duration: Day(s): Location: Reports: Other (left buttock) Quality: Reports: Sharp Severity: Severe Improves with: Reports: None Worsens with: Reports: None Associated Symptoms: Reports: Fever/Chills. Denies: Chest Pain, Cough, Headaches, Nausea/Vomiting, Shortness of Breath Perineal Area Pain Score (Numeric/FACES): 8 - Related Data Allergies Allergy/AdvReac Type Severity Reaction Status Date / Time No Known Allergies Allergy Verified 08/30/18 17:53 Home Meds: Home Meds Acetaminophen/HYDROcodone [[place] 325-5 MG] 1 tab PO Q4H PRN #30 tablet 08/31/18 [Rx] Alogliptin Benzoate [Alogliptin] 25 mg PO DAILY tablet 08/31/18 [Rx] Cholecalciferol (Vitamin D3) [Vitamin D3] 5,000 unit PO DAILY tablet 08/31/18 [ Rx] Lisinopril 10 mg PO DAILY #30 tablet 08/31/18 [Rx] Rosuvastatin [Crestor] 10 mg PO BEDTIME tablet 08/31/18 [Rx] glipiZIDE [Glucotrol XL] 5 mg PO BID tab.er 08/31/18 [Rx] metFORMIN [Glucophage] 500 mg PO WITHDINNER tablet 08/31/18 [Rx] Meloxicam 15 mg PO QID PRN 10/25/18 [History] Past Medical History Endocrine/Metabolic History: Reports: Diabetes, Type II, Other (See Below) Other Endocrine/Metabolic History: pancreatitis Social & Family History - Family History Family Medical History: Noncontributory Endocrine/Metabolic: Reports: Diabetes, Type I - Tobacco Use Smoking Status *Q: Never Smoker - Caffeine Use Caffeine Use: Reports: Coffee - Recreational Drug Use Recreational Drug Use: Yes Recreational Drug Type: Reports: Marijuana/Hashish ED ROS GENERAL - Review of Systems Review Of Systems: See Below Constitutional: Reports: Fever, Chills HEENT: Reports: No Symptoms Respiratory: Reports: No Symptoms Cardiovascular: Reports: No Symptoms Endocrine: Reports: No Symptoms GI/Abdominal: Reports: Other (Left perirectal abscess) : Reports: No Symptoms Musculoskeletal: Reports: No Symptoms ED EXAM, SKIN/RASH Exam: See Below Exam Limited By: No Limitations General Appearance: Alert, No Apparent Distress Ears: Normal External Exam Nose: Normal Inspection Head: Atraumatic, Normocephalic Neck: Normal Inspection Respiratory/Chest: No Respiratory Distress, Lungs Clear, Normal Breath Sounds Cardiovascular: Regular Rate, Rhythm, No Edema, No Murmur GI/Abdominal: Soft, Non-Tender, No Organomegaly, No Mass Rectal (Males) Exam: Other (Left sided perirectal abscess) Back Exam: Normal Inspection Extremities: Normal Inspection Course - Vital Signs Last Recorded V/S: Last Vital Signs Temp 97.9 F 10/25/18 17:26 Pulse 99 10/25/18 17:26 Resp 18 10/25/18 17:26 BP 122/79 10/25/18 17:26 Pulse Ox 98 10/25/18 17:26 - Orders/Labs/Meds Orders: Active Orders 24 hr Category Date Time Status Peripheral IV Care [RC] . DIRECTED Care 10/25/18 16:05 Active Lactated Ringers [Ringers, Lactated] 1,000 ml Med 10/25/18 16:15 Active IV ASDIRECTED Sodium Chloride 0.9% [Saline Flush] Med 10/25/18 16:05 Active 10 ml FLUSH ASDIRECTED PRN Peripheral IV Insertion Adult [OM.PC] Stat Oth 10/25/18 16:05 Ordered Schedule Procedure [COMM] Urgent Oth 10/25/18 17:24 Ordered Medication Orders Lactated Ringer's (Ringers, Lactated) 1,000 mls @ 125 mls/hr IV ASDIRECTED IVIS Last Admin: 10/25/18 16:22 Dose: 125 mls/hr Sodium Chloride (Saline Flush) 10 ml FLUSH ASDIRECTED PRN PRN Reason: Keep Vein Open Last Admin: 10/25/18 16:13 Dose: 10 ml Labs: Laboratory Tests 10/25/18 10/25/18 Range/Units 16:10 16:10 WBC 17.69 H (4.23-9.07) K/mm3 RBC 6.01 (4.63-6.08) M/mm3 Hgb 17.7 H D (13.7-17.5) gm/L Hct 48.9 (40.1-51.0) % MCV 81.4 D (79.0-92.2) fl MCH 29.5 (25.7-32.2) pg MCHC 36.2 H (32.2-35.5) g/dl RDW Std Deviation 38.1 (35.1-43.9) fL Plt Count 230 D (163-337) K/mm3 MPV 11.5 (9.4-12.3) fl Neut % (Auto) 79.0 H (34.0-67.9) % Lymph % (Auto) 13.7 L (21.8-53.1) % [place] % (Auto) 6.9 (5.3-12.2) % Eos % (Auto) 0.1 L (0.8-7.0) Baso % (Auto) 0.1 (0.1-1.2) % Neut # (Auto) 13.97 H (1.78-5.38) K/mm3 Lymph # (Auto) 2.43 (1.32-3.57) K/mm3 [place] # (Auto) 1.22 H (0.30-0.82) K/mm3 Eos # (Auto) 0.01 L (0.04-0.54) K/mm3 Baso # (Auto) 0.02 (0.01-0.08) K/mm3 Manual Slide Review Normal smear Sodium 135 L (136-145) mEq/L Potassium 3.3 L (3.5-5.1) mEq/L Chloride 98 (98-107) mEq/L Carbon Dioxide 20 L (21-32) mEq/L Anion Gap 20.3 H (5-15) BUN 17 (7-18) mg/dL Creatinine 1.0 (0.7-1.3) mg/dL Est Cr Clr Drug Dosing 109.50 mL/min Estimated GFR (MDRD) > 60 (>60) mL/min BUN/Creatinine Ratio 17.0 (14-18) Glucose 219 H (74-106) mg/dL Calcium 9.5 (8.5-10.1) mg/dL Total Bilirubin 2.3 H (0.2-1.0) mg/dL AST 16 (15-37) U/L ALT 35 (16-63) U/L Alkaline Phosphatase 92 (46-116) U/L Total Protein 8.1 (6.4-8.2) g/dl Albumin 4.7 (3.4-5.0) g/dl Globulin 3.4 gm/dL Albumin/Globulin Ratio 1.4 (1-2) Meds: Medications Generic Name Dose Route Start Last Admin Trade Name Freq PRN Reason Stop Dose Admin Lactated Ringer's 1,000 mls @ 125 mls/hr 10/25/18 16:15 10/25/18 16:22 Ringers, Lactated IV 125 mls/hr ASDIRECTED IVIS Administration Sodium Chloride 10 ml 10/25/18 16:05 10/25/18 16:13 Saline Flush FLUSH 10 ml ASDIRECTED PRN Administration Keep Vein Open Discontinued Medications Generic Name Dose Route Start Last Admin Trade Name Freq PRN Reason Stop Dose Admin Bupivacaine HCl/Epinephrine Bitart Confirm 10/25/18 17:15 Marcaine 0.5%/Epinephrine 1:200,000 Administered 10/25/18 17:16 Dose 50 ml .ROUTE .STK-MED ONE Fentanyl Confirm 10/25/18 17:04 Sublimaze Administered 10/25/18 17:05 Dose 250 mcg .ROUTE .STK-MED ONE Hydromorphone HCl 1 mg 10/25/18 16:05 10/25/18 16:21 Dilaudid IVPUSH 10/25/18 16:06 1 mg ONETIME ONE Administration Lidocaine HCl Confirm 10/25/18 17:04 Xylocaine-Mpf 1% Administered 10/25/18 17:05 Dose 4 mls @ as directed .ROUTE .STK-MED ONE Midazolam HCl Confirm 10/25/18 17:04 Versed 1 Mg/Ml Administered 10/25/18 17:05 Dose 2 mg .ROUTE .STK-MED ONE Ondansetron HCl Confirm 10/25/18 17:03 Zofran Administered 10/25/18 17:04 Dose 4 mg .ROUTE .STK-MED ONE Propofol Confirm 10/25/18 17:03 Diprivan 20 Ml Administered 10/25/18 17:04 Dose 200 mg .ROUTE .STK-MED ONE Rocuronium [place] Confirm 10/25/18 17:03 Zemuron Administered 10/25/18 17:04 Dose 50 mg .ROUTE .STK-MED ONE - Re-Assessments/Exams Free Text/Narrative Re-Assessment/Exam: 10/25/18 17:45 I ordered an IV LR at 125mL/hr, labs and dilaudid 1mg IV. His WBC was elevated at 17.69. His Hgb was elevated at 17.7. His Na was low at 135 along with his K at 3.3. His anion gap was elevated at 20.3. His glucose was elevated at 219. His total bili was elevated at 2.3. I called Dr Underwood our general surgeon boom conveyor operator and he came to see the patient and he will take him to the OR to drain the abscess. Departure - Departure Time of Disposition: 17:50 Disposition: DC/Tfer to Critical Access [facility] Condition: Good Clinical Impression: Perirectal abscess - Discharge Information - My Orders Last 24 Hours: My Active Orders 10/25/18 16:05 Peripheral IV Care [RC] . DIRECTED Sodium Chloride 0.9% [Saline Flush] 10 ml FLUSH ASDIRECTED PRN Peripheral IV Insertion Adult [OM.PC] Stat 10/25/18 16:15 Lactated Ringers [Ringers, Lactated] 1,000 ml IV ASDIRECTED - Assessment/Plan Last 24 Hours: My Active Orders 10/25/18 16:05 Peripheral IV Care [RC] . DIRECTED Sodium Chloride 0.9% [Saline Flush] 10 ml FLUSH ASDIRECTED PRN Peripheral IV Insertion Adult [OM.PC] Stat 10/25/18 16:15 Lactated Ringers [Ringers, Lactated] 1,000 ml IV ASDIRECTED
[2018-10-25] MEDS ORDERED: HYDROmorphone 1 MG/ML Syringe IVPUSH ONE (16:05)
[2018-10-25] MEDS ORDERED: Sodium Chloride 0.9% 10 ML Syringe FLUSH PRN (16:05)
[2018-10-25] MEDS ORDERED: Lactated Ringers 1,000 ML IV SCH (16:15)
[2018-10-25] MEDS ORDERED: Ondansetron 4 MG/2 ML SDV ONE (17:03)
[2018-10-25] MEDS ORDERED: Rocuronium 50 MG/5 ML Vial ONE (17:03)
[2018-10-25] MEDS ORDERED: Propofol 200 MG/20 ML SDV ONE (17:03)
[2018-10-25] MEDS ORDERED: Lidocaine 1% 4 ML ONE (17:04)
[2018-10-25] MEDS ORDERED: Midazolam 1 MG/ML 2 ML SDV ONE (17:04)
[2018-10-25] MEDS ORDERED: fentaNYL 250 MCG/5 ML SDV ONE (17:04)
[2018-10-25] MEDS ORDERED: Bupivacaine 0.5%/EPINEPHrine 1:200,000 50 ML MDV ONE (17:15)
--- NOTE | 2018-10-25 17:23 | PCM.PREANE ---
Preanesthetic Assessment - Anesthesia/Transfusion/Family Hx Anesthesia History: Prior Anesthesia Without Reaction Family History of Anesthesia Reaction: No Transfusion History: Prior Transfusion Without Reaction Intubation History: Unknown - Review of Systems General: Fatigue Pulmonary: No Symptoms Cardiovascular: No Symptoms Gastrointestinal: Nausea Neurological: No Symptoms Other: Reports: Diabetes (219 At 1600) - Physical Assessment NPO Status Date: 10/24/18 NPO Status Time: 21:00 Pulse: 99 O2 Sat by Pulse Oximetry: 98 Respiratory Rate: 18 Blood Pressure: 122/79 Temperature: 36.6 C Vital Signs: Last Vital Signs Temp 36.6 C 10/25/18 15:45 Pulse 99 10/25/18 15:45 Resp 18 10/25/18 15:45 BP 122/79 10/25/18 15:45 Pulse Ox 98 10/25/18 15:45 Height: 1.78 m Weight: 99.79 kg ASA Class: 3 Mental Status: Alert & Oriented x3 Airway Class: Mallampati = 1 Dentition: Reports: Normal Dentition Thyro-Mental Finger Breadths: 3 Mouth Opening Finger Breadths: 3 ROM/Head Extension: Full Lungs: Clear to Auscultation, Normal Respiratory Effort Cardiovascular: Regular Rate, Regular Rhythm - Lab Values: Laboratory Last Values WBC 17.69 K/mm3 (4.23-9.07) H 10/25/18 16:10 RBC 6.01 M/mm3 (4.63-6.08) 10/25/18 16:10 Hgb 17.7 gm/L (13.7-17.5) H D 10/25/18 16:10 Hct 48.9 % (40.1-51.0) 10/25/18 16:10 MCV 81.4 fl (79.0-92.2) D 10/25/18 16:10 MCH 29.5 pg (25.7-32.2) 10/25/18 16:10 MCHC 36.2 g/dl (32.2-35.5) H 10/25/18 16:10 RDW Std Deviation 38.1 fL (35.1-43.9) 10/25/18 16:10 Plt Count 230 K/mm3 (163-337) D 10/25/18 16:10 MPV 11.5 fl (9.4-12.3) 10/25/18 16:10 Neut % (Auto) 79.0 % (34.0-67.9) H 10/25/18 16:10 Lymph % (Auto) 13.7 % (21.8-53.1) L 10/25/18 16:10 [place] % (Auto) 6.9 % (5.3-12.2) 10/25/18 16:10 Eos % (Auto) 0.1 (0.8-7.0) L 10/25/18 16:10 Baso % (Auto) 0.1 % (0.1-1.2) 10/25/18 16:10 Neut # (Auto) 13.97 K/mm3 (1.78-5.38) H 10/25/18 16:10 Lymph # (Auto) 2.43 K/mm3 (1.32-3.57) 10/25/18 16:10 [place] # (Auto) 1.22 K/mm3 (0.30-0.82) H 10/25/18 16:10 Eos # (Auto) 0.01 K/mm3 (0.04-0.54) L 10/25/18 16:10 Baso # (Auto) 0.02 K/mm3 (0.01-0.08) 10/25/18 16:10 Manual Slide Review Normal smear 10/25/18 16:10 Sodium 135 mEq/L (136-145) L 10/25/18 16:10 Potassium 3.3 mEq/L (3.5-5.1) L 10/25/18 16:10 Chloride 98 mEq/L (98-107) 10/25/18 16:10 Carbon Dioxide 20 mEq/L (21-32) L 10/25/18 16:10 Anion Gap 20.3 (5-15) H 10/25/18 16:10 BUN 17 mg/dL (7-18) 10/25/18 16:10 Creatinine 1.0 mg/dL (0.7-1.3) 10/25/18 16:10 Est Cr Clr Drug Dosing 109.50 mL/min 10/25/18 16:10 Estimated GFR (MDRD) > 60 mL/min (>60) 10/25/18 16:10 BUN/Creatinine Ratio 17.0 (14-18) 10/25/18 16:10 Glucose 219 mg/dL (74-106) H 10/25/18 16:10 Calcium 9.5 mg/dL (8.5-10.1) 10/25/18 16:10 Total Bilirubin 2.3 mg/dL (0.2-1.0) H 10/25/18 16:10 AST 16 U/L (15-37) 10/25/18 16:10 ALT 35 U/L (16-63) 10/25/18 16:10 Alkaline Phosphatase 92 U/L (46-116) 10/25/18 16:10 Total Protein 8.1 g/dl (6.4-8.2) 10/25/18 16:10 Albumin 4.7 g/dl (3.4-5.0) 10/25/18 16:10 Globulin 3.4 gm/dL 10/25/18 16:10 Albumin/Globulin Ratio 1.4 (1-2) 10/25/18 16:10 - Allergies Allergies/Adverse Reactions: Allergies Allergy/AdvReac Type Severity Reaction Status Date / Time No Known Allergies Allergy Verified 08/30/18 17:53 - Blood Blood Available: No Product(s) Available: None - Anesthesia Plan Pre-Op Medication Ordered: None - Acknowledgements Anesthesia Type Planned: General Anesthesia Pt an Appropriate Candidate for the Planned Anesthesia: Yes Alternatives and Risks of Anesthesia Discussed w Pt/Guardian: Yes Pt/Guardian Understands and Agrees with Anesthesia Plan: Yes PreAnesthesia Questionnaire Endocrine/Metabolic History: Reports: Diabetes, Type II, Other (See Below) Other Endocrine/Metabolic History: pancreatitis - SUBSTANCE USE Smoking Status *Q: Never Smoker Tobacco Use Within Last Twelve Months: No Second Hand Smoke Exposure: No Days Per Week of Alcohol Use: 1 Number of Drinks Per Day: 1 Total Drinks Per Week: 1 Recreational Drug Use History: Yes Recreational Drug Type: Reports: Marijuana/Hashish - HOME MEDS Home Medications: Home Meds Acetaminophen/HYDROcodone [[place] 325-5 MG] 1 tab PO Q4H PRN #30 tablet 08/31/18 [Rx] Alogliptin Benzoate [Alogliptin] 25 mg PO DAILY tablet 08/31/18 [Rx] Cholecalciferol (Vitamin D3) [Vitamin D3] 5,000 unit PO DAILY tablet 08/31/18 [ Rx] Lisinopril 10 mg PO DAILY #30 tablet 08/31/18 [Rx] Rosuvastatin [Crestor] 10 mg PO BEDTIME tablet 08/31/18 [Rx] glipiZIDE [Glucotrol XL] 5 mg PO BID tab.er 08/31/18 [Rx] metFORMIN [Glucophage] 500 mg PO WITHDINNER tablet 08/31/18 [Rx] Meloxicam 15 mg PO QID PRN 10/25/18 [History] - CURRENT (IN HOUSE) MEDS Current Meds: Current Medications Lactated Ringer's (Ringers, Lactated) 1,000 mls @ 125 mls/hr IV ASDIRECTED IVIS Last Admin: 10/25/18 16:22 Dose: 125 mls/hr Sodium Chloride (Saline Flush) 10 ml FLUSH ASDIRECTED PRN PRN Reason: Keep Vein Open Last Admin: 10/25/18 16:13 Dose: 10 ml Discontinued Medications Bupivacaine HCl/Epinephrine Bitart (Marcaine 0.5%/Epinephrine 1:200,000) Confirm Administered Dose 50 ml .ROUTE .STK-MED ONE Stop: 10/25/18 17:16 Fentanyl (Sublimaze) Confirm Administered Dose 250 mcg .ROUTE .STK-MED ONE Stop: 10/25/18 17:05 Hydromorphone HCl (Dilaudid) 1 mg IVPUSH ONETIME ONE Stop: 10/25/18 16:06 Last Admin: 10/25/18 16:21 Dose: 1 mg Lidocaine HCl (Xylocaine-Mpf 1%) Confirm Administered Dose 4 mls @ as directed .ROUTE .STK-MED ONE Stop: 10/25/18 17:05 Midazolam HCl (Versed 1 Mg/Ml) Confirm Administered Dose 2 mg .ROUTE .STK-MED ONE Stop: 10/25/18 17:05 Ondansetron HCl (Zofran) Confirm Administered Dose 4 mg .ROUTE .STK-MED ONE Stop: 10/25/18 17:04 Propofol (Diprivan 20 Ml) Confirm Administered Dose 200 mg .ROUTE .STK-MED ONE Stop: 10/25/18 17:04 Rocuronium [place] (Zemuron) Confirm Administered Dose 50 mg .ROUTE .STK-MED ONE Stop: 10/25/18 17:04
[2018-10-25] MEDS ORDERED: HYDROmorphone 0.5 MG/0.5 ML Syringe ONE ×2 (17:52)
[2018-10-25] MEDS ORDERED: HYDROmorphone 0.5 MG/0.5 ML Syringe IVPUSH PRN (18:30)
[2018-10-25] MEDS ORDERED: fentaNYL 100 MCG/2 ML SDV IVPUSH PRN (18:30)
[2018-10-25] MEDS ORDERED: Ketorolac 30 MG/ML SDV IVPUSH PRN (18:30)
--- NOTE | 2018-10-25 18:32 | PCM.POSTAN ---
POST ANESTHESIA ASSESSMENT - MENTAL STATUS Mental Status: Alert, Oriented - VITAL SIGNS Pulse Rate: 104 SaO2: 94 Resp Rate: 16 Blood Pressure: 140/74 Temperature: 37.4 C - RESPIRATORY Respiratory Status: Respiratory Rate WNL, Airway Patent, O2 Saturation Stable - CARDIOVASCULAR CV Status: Pulse Rate WNL, Blood Pressure Stable - GASTROINTESTINAL GI Status: No Symptoms - PAIN Pain Score: 3 - POST OP HYDRATION Hydration Status: Adequate & Stable - OBSERVATIONS Free Text/Narrative:: no anesthesia complications noted
--- NOTE | 2018-10-26 00:12 | HP ---
DATE OF ADMISSION: 10/25/2018 ADMITTING DIAGNOSIS: Perirectal abscess. HISTORY OF PRESENT ILLNESS: The patient is a 33-year-old morbidly obese, diabetic. He presents with a chronic history of recurrent perirectal abscess. Two years ago, he had a perirectal abscess which was drained under operative management. His disease was quiescent for almost 2 years when he had a recurrence in August. He was again brought to the operating room by Dr. 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 The patient was drained in August. The packing had been removed. Eventually, the fistulous tract closed and he redeveloped pain over the last 24 hours. This has been associated with shaking chills and subjective fever. He has had a rapid increase in his pain sensation this morning, and he now has swelling, induration, and severe pain related to the left buttock. He is passing his stool normally. He has had no stool emanating from the fistulous tract. PAST MEDICAL HISTORY: Poorly-controlled type 2 diabetes, morbid obesity, hypertension, hyperlipidemia. CURRENT MEDICATIONS: Meloxicam 15 mg q.i.d. p.r.n., metformin 500 mg p.o. b.i.d., glipizide 5 mg b.i.d., Crestor 10 mg at bedtime, lisinopril 10 mg p.o. daily, cholecalciferol 500 units p.o. daily, alogliptin 25 mg p.o. daily, and [place] 5/325 one tablet q.4 hours p.r.n. PAST SURGICAL HISTORY: He has had 2 episodes of perirectal abscess drained. ALLERGIES TO MEDICATIONS: None. REVIEW OF SYSTEMS: He is a cigarette smoker, smokes about a half pack of cigarettes per day. Denies illicit drugs. Denies alcohol abuse. Ten-system review is otherwise negative. PHYSICAL EXAMINATION: GENERAL: He is alert. He is in obvious painful distress. VITAL SIGNS: Temperature 99.0, pulse 103, respirations 18, and blood pressure 122/79. HEAD AND NECK: Normocephalic and atraumatic. He is anicteric. LUNGS: His lungs are clear to auscultation bilaterally. HEART: Has a regular rhythm, but he is mildly tachycardic on my palpation. No clicks, murmurs, or rubs. ABDOMEN: Soft, nontender, and nondistended. EXTREMITIES: No clubbing, cyanosis, or edema. No calf tenderness. RECTAL: His perirectal exam demonstrates a tender, erythematous left buttock with visible sinus which is now closed on the left buttock adjacent to the anus. His rectal exam is exquisitely tender. NEUROLOGIC: His cranial nerves are grossly intact and nonfocal. PSYCHIATRIC: He has appropriate affect and demeanor. Linear thinking. LABORATORY DATA: I have looked at his labs. He has a mild leukocytosis with a left shift. His blood sugar is a bit high at 196 and 252. Hemoglobin A1c 9.1, triglycerides 788, cholesterol 211. ASSESSMENT: Perirectal abscess on physical exam and by history. PLAN: I have called the operating room team in for surgical exploration. I will give him a dose of antibiotics preoperatively. He will have an instantaneous relief once the abscess is opened again. At some point, he will need a fistulotomy. My main concern now is to control the infection. Clearly, he also needs to get his long-term blood sugars under control. I thoroughly discussed with him and his the major risks, benefits, and alternatives. The risks include, but are not limited to, recurrence, bleeding, infection, recurrent surgery, and many others. He gave informed consent. LYSSA /[id number]
--- NOTE | 2018-10-26 00:12 | OR ---
DATE OF OPERATION: 10/25/2018 SURGEON: Chente Underwood MD PREOPERATIVE DIAGNOSIS: Perirectal abscess. POSTOPERATIVE DIAGNOSIS: Perirectal abscess. OPERATION PERFORMED: Incision and drainage of perirectal abscess. ANESTHESIA: General with endotracheal intubation. COMPLICATIONS: None. ESTIMATED BLOOD LOSS: Minimal. FINDINGS: He has an indurated erythematous mass on the left buttock with a previous sinus incision located in the midst of the erythema and induration. He has tender rectal exam. I drained approximately 25 mL of non foul-smelling purulent material. PATHOLOGY: I sent samples for culture, sensitivity, both aerobic and anaerobic cultures as well. DISPOSITION: Stable at the end of procedure. INDICATION: Thomas is a 33-year-old poorly controlled diabetic who presented to the ED with recurrent perirectal abscess. It was clear he would not tolerate a procedure at the bedside as this may lead to inadequate drainage. He was booked for a drainage under anesthesia. He was fully informed of the major risks, benefits, and alternatives. Please see my H and P for further details of that discussion. He gave informed consent. DESCRIPTION OF PROCEDURE: Thomas was brought to the operating room and placed in supine position on the operating table. He was given general anesthesia and intubated. 2 g of cefoxitin was administered. The patient was placed in [facility] stirrups. All pressure points were padded. The buttocks were prepped and draped in usual sterile fashion. In the lithotomy position, I identified the previous fistulous tract and incision. The surrounding skin and subcutaneous tissue were infused with 1% Marcaine with epinephrine. I opened the skin in the area of maximum fluctuance and got an immediate luke of purulence under pressure. This drainage was cultured as described above. I then passed the Yankauer suction catheter into the pocket and followed its track along the course of the perirectal space. It tracts actually quite deeply approximately 10 to 15 cm. I could not identify a specific communication with a crypt gland within the rectum. A thorough irrigation of the entirety of that space was undertaken with a bulb syringe. I then once again passed the Yankauer suction catheter into the cavity and found no further purulence. Another irrigation was undertaken, and once again, I passed the Yankauer catheter into that space to ensure that all loculations were completely disturbed. No further purulence was identified. At this point, the patient was awakened from anesthesia. A sterile dressing was applied. He had no complications and tolerated the procedure well. The erythema around the incision was largely resolved at the end the procedure. PLAN: I will see him in my office in 1-1/2 to 2 weeks. He may shower. He is cautioned not to drive for 24 hours and he will need to be set up for a fistulotomy at some point. He can be at least discharged from the PACU. LYSSA /[id number]
== END 2018-10-25 20:21 | disposition home or self-care (01) ==
LOC: JD.ED 15:34 → JD.SDS 17:11
PROVIDERS: ATTEND Surgery
DX: K61.1 Rectal abscess (principal); E11.9 Type 2 diabetes mellitus without complications; I10 Essential (primary) hypertension; E78.5 Hyperlipidemia, unspecified; F17.210 Nicotine dependence, cigarettes, uncomplicated; E66.01 Morbid (severe) obesity due to excess calories; Z68.31 Body mass index [BMI] 31.0-31.9, adult; Z79.4 Long term (current) use of insulin; Z79.899 Other long term (current) drug therapy
CPT/HCPCS: 36415; 80053; 85025; 87075; 87205; 96361; 96374; 99284; 99284-25; J0694; J1170; J2001; J2250; J2405; J2704; J3010; J3490; J7120

== ENCOUNTER 2019-07-16 16:26 | Day surgery (SDC) | payer SELFPAY ==
[2019-07-16] MEDS ORDERED: HYDROmorphone 1 MG/ML Syringe IVPUSH ONE (18:53)
[2019-07-16] MEDS ORDERED: Metoclopramide 10 MG/2 ML SDV IVPUSH ONE (18:53)
[2019-07-16] MEDS ORDERED: metroNIDAZOLE/Normal Saline 500 MG in Premix Bag 1 BAG IV ONE (18:55)
[2019-07-16] MEDS ORDERED: Piperacillin/Tazobactam 4.5 GM in Sodium Chloride 0.9% 100 ML IV ONE (18:56)
--- NOTE | 2019-07-16 18:57 | EDM.PDOC ---
ED HPI GENERAL MEDICAL PROBLEM - General Chief Complaint: Skin Complaint Stated Complaint: ABSCESS ON LEFT BUTTOCK Time Seen by Provider: 07/16/19 18:52 Source of Information: Reports: Patient, Family (spouse) History Limitations: Reports: No Limitations - History of Present Illness INITIAL COMMENTS - FREE TEXT/NARRATIVE: 84-year-old male of [place] ancestry presents to the ED with severe pain right perianal area with drainage of purulent material with blood earlier this morning. Patient has been having pain in this area for the last 3 to 4 days and felt a lump in the area. This morning his sat on a hard surface and it ruptured and he felt drainage down his leg. When he checked it was purulent and serosanguineous material. Still having 8 out of 10 pain in this area. He has had previous perianal sepsis in this area x3 in the past that required open incision and drainage. 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 He also has a 2cm abscess in his right inguinal fold that should be opened and drained as well. He is a type II diabetic and is no longer taking medication for this and does not check his blood sugars. Onset: Gradual Onset Date: 07/12/19 Duration: Day(s):, Constant, Getting Worse Location: Reports: Other (Left perianal area abscess left inguinal area) Quality: Reports: Ache, Throbbing Severity: Moderate Improves with: Reports: None Worsens with: Reports: Other Context: Reports: Other (Continuous occurrence). Denies: Activity, Exercise ( Touch and to sit.), Lifting, Sick Contact, Trauma Associated Symptoms: Reports: Fever/Chills, Malaise. 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.) Rectal Pain Score (Numeric/FACES): 7 - Related Data Allergies Allergy/AdvReac Type Severity Reaction Status Date / Time No Known Allergies Allergy Verified 07/16/19 16:39 Home Meds: Home Meds Ciprofloxacin HCl [Cipro] 500 mg PO BID 7 Days #14 tablet 07/17/19 [Rx] Docusate Sodium [Colace] 100 mg PO BID 15 Days #30 capsule 02/26/20 [Rx] metroNIDAZOLE [Metronidazole] 500 mg PO TID 7 Days #21 tablet 07/17/19 [Rx] traMADol [Ultram] 50 mg PO Q6H PRN #12 tab 07/17/19 [Rx] Past Medical History HEENT History: Reports: None Cardiovascular History: Reports: High Cholesterol, Hypertension Respiratory History: Reports: None Gastrointestinal History: Reports: Other (See Below) Other Gastrointestinal History: hank rectal and incision and drainage Genitourinary History: Reports: None 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 Prior to this he was taking metformin), Other (See Below) Other Endocrine/Metabolic History: pancreatitis Hematologic History: Reports: None Immunologic History: Reports: None Oncologic (Cancer) History: Reports: None Dermatologic History: Reports: None - Past Surgical History Head Surgeries/Procedures: Reports: None HEENT Surgical History: Reports: None Cardiovascular Surgical History: Reports: None Respiratory Surgical History: Reports: None GI Surgical History: Reports: None Male Surgical History: Reports: None Endocrine Surgical History: Reports: None Neurological Surgical History: Reports: None Musculoskeletal Surgical History: Reports: None Oncologic Surgical History: Reports: None Social & Family History - Family History Family Medical History: Noncontributory Endocrine/Metabolic: Reports: Diabetes, Type I - Tobacco Use Smoking Status *Q: Never Smoker - Caffeine Use Caffeine Use: Reports: Coffee - Recreational Drug Use Recreational Drug Use: Yes Drug Use in Last 12 Months: Yes Recreational Drug Type: Reports: Marijuana/Hashish - Living Situation & Occupation Living situation: Reports: Occupation: Employed (He did work all day today.) [facility] - Review of Systems Review Of Systems: See Below Constitutional: Reports: Fever, Chills, Malaise, Weakness, Fatigue. Denies: Decreased Appetite, Weight Loss HEENT: Reports: No Symptoms Respiratory: Reports: No Symptoms Cardiovascular: Reports: No Symptoms Endocrine: Reports: Fatigue GI/Abdominal: Reports: No Symptoms : Reports: No Symptoms Musculoskeletal: Reports: No Symptoms Skin: Reports: Other (As a superficial abscess in his right inguinal area actually adjacent to the medial proximal thigh that is approximately 2 cm in length. He has a perianal abscess at the 8 o'clock position) Neurological: Reports: No Symptoms Psychiatric: Reports: No Symptoms Hematologic/Lymphatic: Reports: No Symptoms ED EXAM, SKIN/RASH Exam: See Below Exam Limited By: No Limitations General Appearance: Alert, WD/WN, Moderate Distress, Other (Is in obvious discomfort. Temperature is 36.9 but he feels warmer than this. Pulse is 87 and sinus respiratory 16 pulse oximetry is 98% BP 137/85.) Eye Exam: Bilateral Eye: Normal Inspection, PERRL Throat/Mouth: Normal Inspection, Normal Lips, Normal Oropharynx Head: Atraumatic, Normocephalic Neck: Normal Inspection, Supple, Non-Tender, Full Range of Motion. No: Lymphadenopathy (L), Lymphadenopathy (R) Respiratory/Chest: No Respiratory Distress, Lungs Clear, Normal Breath Sounds, No Accessory Muscle Use Cardiovascular: Normal Peripheral Pulses, Regular Rate, Rhythm, No Edema, No Gallop, No Murmur, No Rub Peripheral Pulses: 3+: Posterior Tibial (L), Posterior Tibial (R), Dorsalis Pedis (L), Dorsalis Pedis (R) GI/Abdominal: Normal Bowel Sounds, Soft, Non-Tender, No Organomegaly, No Mass, Pelvis Stable, Other (No surgical scars.) (Male) Exam: Other (Patient has an abscess on the right inguinal area approximately 2 cm in size it is superficial and has not been draining. It is slightly tender to palpation and minimally erythematous. It appears to be fluctuant.) Rectal (Males) Exam: Other (Perianal abscess with evidence of previous surgical treatment at the 8 o'clock position when he is in the left lateral decubitus position. It is open and draining slightly purulent material.) Back Exam: Normal Inspection, Full Range of Motion. No: CVA Tenderness (L), CVA Tenderness (R) Extremities: Normal Inspection, Normal Range of Motion, Non-Tender Neurological: Alert, Oriented, CN II-XII Intact, Normal Cognition. No: Normal Gait Psychiatric: Normal Affect, Normal Mood Skin: Warm, Dry, Intact, Normal Color Course - Vital Signs Last Recorded V/S: Last Vital Signs Temp 36.6 C 07/17/19 14:00 Pulse 89 07/17/19 14:00 Resp 16 07/17/19 14:00 BP 125/87 07/17/19 14:00 Pulse Ox 98 07/17/19 14:00 - Orders/Labs/Meds Labs: Laboratory Tests 07/16/19 07/16/19 07/16/19 Range/Units 18:55 18:55 18:55 WBC 8.64 (4.23-9.07) K/mm3 RBC 5.94 (4.63-6.08) M/mm3 Hgb 17.4 (13.7-17.5) gm/dl Hct 51.6 H (40.1-51.0) % MCV 86.9 D (79.0-92.2) fl MCH 29.3 (25.7-32.2) pg MCHC 33.7 (32.2-35.5) g/dl RDW Std Deviation 35.5 (35.1-43.9) fL Plt Count 234 (163-337) K/mm3 MPV 10.9 (9.4-12.3) fl Neutrophils % (Manual) 58 (40-60) % Band Neutrophils % 2 (0-10) % Lymphocytes % (Manual) 31 (20-40) % Atypical Lymphs % 3 % Monocytes % (Manual) 5 (2-10) % Eosinophils % (Manual) 1 (0.8-7.0) % Basophils % (Manual) 0 L (0.2-1.2) Platelet Estimate Adequate RBC Morph Comment Normal PT 10.9 (9.7-12.0) SECONDS INR 1.00 APTT 26 (22-31) SECONDS Sodium 137 (136-145) mEq/L Potassium 3.7 (3.5-5.1) mEq/L Chloride 101 (98-107) mEq/L Carbon Dioxide 25 (21-32) mEq/L Anion Gap 14.7 (5-15) BUN 13 (7-18) mg/dL Creatinine 0.8 (0.7-1.3) mg/dL Est Cr Clr Drug Dosing 135.61 mL/min Estimated GFR (MDRD) > 60 (>60) mL/min BUN/Creatinine Ratio 16.3 (14-18) Glucose 267 H (74-106) mg/dL POC Glucose (70-105) mg/dL Hemoglobin A1c (4.50-6.20) % Serum Osmolality (280-300) mosm/kg Lactic Acid (0.4-2.0) mmol/L Calcium 9.0 (8.5-10.1) mg/dL Magnesium 1.8 (1.8-2.4) mg/dl Total Bilirubin 0.9 (0.2-1.0) mg/dL AST 13 L (15-37) U/L ALT 32 (16-63) U/L Alkaline Phosphatase 67 (46-116) U/L C-Reactive Protein <0.2 (<1.0) mg/dL Total Protein 7.3 (6.4-8.2) g/dl Albumin 4.0 (3.4-5.0) g/dl Globulin 3.3 gm/dL Albumin/Globulin Ratio 1.2 (1-2) Urine Color (Yellow) Urine Appearance (Clear) Urine pH (5.0-8.0) Ur Specific [place] (1.005-1.030) Urine Protein (Negative) Urine Glucose (UA) (Negative) Urine Ketones (Negative) Urine Occult Blood (Negative) Urine Nitrite (Negative) Urine Bilirubin (Negative) Urine Urobilinogen (0.2-1.0) Ur Leukocyte Esterase (Negative) Urine RBC (0-5) /hpf Urine WBC (0-5) /hpf Ur Squamous Epith Cells (0-5) /hpf Urine Bacteria (FEW) /hpf Urine Mucus (FEW) /hpf 07/16/19 07/16/19 07/16/19 Range/Units 18:55 18:55 19:22 WBC (4.23-9.07) K/mm3 RBC (4.63-6.08) M/mm3 Hgb (13.7-17.5) gm/dl Hct (40.1-51.0) % MCV (79.0-92.2) fl MCH (25.7-32.2) pg MCHC (32.2-35.5) g/dl RDW Std Deviation (35.1-43.9) fL Plt Count (163-337) K/mm3 MPV (9.4-12.3) fl Neutrophils % (Manual) (40-60) % Band Neutrophils % (0-10) % Lymphocytes % (Manual) (20-40) % Atypical Lymphs % % Monocytes % (Manual) (2-10) % Eosinophils % (Manual) (0.8-7.0) % Basophils % (Manual) (0.2-1.2) Platelet Estimate RBC Morph Comment PT (9.7-12.0) SECONDS INR APTT (22-31) SECONDS Sodium (136-145) mEq/L Potassium (3.5-5.1) mEq/L Chloride (98-107) mEq/L Carbon Dioxide (21-32) mEq/L Anion Gap (5-15) BUN (7-18) mg/dL Creatinine (0.7-1.3) mg/dL Est Cr Clr Drug Dosing mL/min Estimated GFR (MDRD) (>60) mL/min BUN/Creatinine Ratio (14-18) Glucose (74-106) mg/dL POC Glucose (70-105) mg/dL Hemoglobin A1c 9.00 H (4.50-6.20) % Serum Osmolality 300 (280-300) mosm/kg Lactic Acid 1.1 (0.4-2.0) mmol/L Calcium (8.5-10.1) mg/dL Magnesium (1.8-2.4) mg/dl Total Bilirubin (0.2-1.0) mg/dL AST (15-37) U/L ALT (16-63) U/L Alkaline Phosphatase (46-116) U/L C-Reactive Protein (<1.0) mg/dL Total Protein (6.4-8.2) g/dl Albumin (3.4-5.0) g/dl Globulin gm/dL Albumin/Globulin Ratio (1-2) Urine Color (Yellow) Urine Appearance (Clear) Urine pH (5.0-8.0) Ur Specific [place] (1.005-1.030) Urine Protein (Negative) Urine Glucose (UA) (Negative) Urine Ketones (Negative) Urine Occult Blood (Negative) Urine Nitrite (Negative) Urine Bilirubin (Negative) Urine Urobilinogen (0.2-1.0) Ur Leukocyte Esterase (Negative) Urine RBC (0-5) /hpf Urine WBC (0-5) /hpf Ur Squamous Epith Cells (0-5) /hpf Urine Bacteria (FEW) /hpf Urine Mucus (FEW) /hpf 07/16/19 07/17/19 Range/Units 20:35 10:18 WBC (4.23-9.07) K/mm3 RBC (4.63-6.08) M/mm3 Hgb (13.7-17.5) gm/dl Hct (40.1-51.0) % MCV (79.0-92.2) fl MCH (25.7-32.2) pg MCHC (32.2-35.5) g/dl RDW Std Deviation (35.1-43.9) fL Plt Count (163-337) K/mm3 MPV (9.4-12.3) fl Neutrophils % (Manual) (40-60) % Band Neutrophils % (0-10) % Lymphocytes % (Manual) (20-40) % Atypical Lymphs % % Monocytes % (Manual) (2-10) % Eosinophils % (Manual) (0.8-7.0) % Basophils % (Manual) (0.2-1.2) Platelet Estimate RBC Morph Comment PT (9.7-12.0) SECONDS INR APTT (22-31) SECONDS Sodium (136-145) mEq/L Potassium (3.5-5.1) mEq/L Chloride (98-107) mEq/L Carbon Dioxide (21-32) mEq/L Anion Gap (5-15) BUN (7-18) mg/dL Creatinine (0.7-1.3) mg/dL Est Cr Clr Drug Dosing mL/min Estimated GFR (MDRD) (>60) mL/min BUN/Creatinine Ratio (14-18) Glucose (74-106) mg/dL POC Glucose 205 H (70-105) mg/dL Hemoglobin A1c (4.50-6.20) % Serum Osmolality (280-300) mosm/kg Lactic Acid (0.4-2.0) mmol/L Calcium (8.5-10.1) mg/dL Magnesium (1.8-2.4) mg/dl Total Bilirubin (0.2-1.0) mg/dL AST (15-37) U/L ALT (16-63) U/L Alkaline Phosphatase (46-116) U/L C-Reactive Protein (<1.0) mg/dL Total Protein (6.4-8.2) g/dl Albumin (3.4-5.0) g/dl Globulin gm/dL Albumin/Globulin Ratio (1-2) Urine Color Yellow (Yellow) Urine Appearance Clear (Clear) Urine pH 5.5 (5.0-8.0) Ur Specific [place] > or = 1.030 (1.005-1.030) Urine Protein 2+ H (Negative) Urine Glucose (UA) 2+ H (Negative) Urine Ketones Trace H (Negative) Urine Occult Blood Negative (Negative) Urine Nitrite Negative (Negative) Urine Bilirubin Negative (Negative) Urine Urobilinogen 0.2 (0.2-1.0) Ur Leukocyte Esterase Negative (Negative) Urine RBC 0-5 (0-5) /hpf Urine WBC 0-5 (0-5) /hpf Ur Squamous Epith Cells 0-5 (0-5) /hpf Urine Bacteria Few (FEW) /hpf Urine Mucus Few (FEW) /hpf Meds: Medications Discontinued Medications Generic Name Dose Route Start Last Admin Trade Name Freq PRN Reason Stop Dose Admin Bupivacaine HCl/Epinephrine Bitart Confirm 07/17/19 11:27 07/17/19 12:03 Marcaine 0.5%/Epinephrine 1:200,000 Administered 07/17/19 11:28 35 ml Dose Administration 50 ml .ROUTE .STK-MED ONE Docusate Sodium 100 mg 07/16/19 22:15 07/16/19 22:48 Colace PO 100 mg BID IVIS Administration Fentanyl Confirm 07/17/19 10:35 Sublimaze Administered 07/17/19 10:36 Dose 250 mcg .ROUTE .STK-MED ONE Fentanyl 50 mcg 07/17/19 12:51 Sublimaze IVPUSH 07/17/19 18:00 Q5M PRN Pain Glycopyrrolate Confirm 07/17/19 12:21 Administered 07/17/19 12:22 Dose 1 mg .ROUTE .STK-MED ONE Hydromorphone HCl 1 mg 07/16/19 18:53 07/16/19 19:02 Dilaudid IVPUSH 07/16/19 18:54 1 mg ONETIME ONE Administration Hydromorphone HCl 1 mg 07/17/19 00:25 07/17/19 00:29 Dilaudid IVPUSH 07/17/19 00:26 1 mg ONETIME ONE Administration Hydromorphone HCl 0.5 mg 07/17/19 12:51 Dilaudid IVPUSH 07/17/19 18:00 Q10M PRN Pain (severe 7-10) Metronidazole 500 mg/ Premix 100 mls @ 100 mls/hr 07/16/19 18:55 07/16/19 19: 04 IV 02/25/20 19:54 100 mls/hr ONETIME ONE Administration Sodium Chloride 1,000 mls @ 500 mls/hr 07/16/19 19:00 07/16/19 19:02 Normal Saline IV 500 mls/hr ASDIRECTED IVIS Administration Piperacillin Sod/Tazobactam 100 mls @ 200 mls/hr 07/16/19 18:56 07/16/19 19: 04 Sod 4.5 gm/ Sodium Chloride IV 07/16/19 19:25 200 mls/hr ONETIME ONE Administration Lactated Ringer's 1,000 mls @ 50 mls/hr 07/16/19 22:30 07/16/19 22:48 Ringers, Lactated IV 50 mls/hr ASDIRECTED IVIS Administration Metronidazole 500 mg/ Premix 100 mls @ 100 mls/hr 07/17/19 03:00 07/17/19 11: 21 IV 100 mls/hr Q8H IVIS Administration Lidocaine HCl Confirm 07/17/19 10:34 Xylocaine-Mpf 1% Administered 07/17/19 10:35 Dose 4 mls @ as directed .ROUTE .STK-MED ONE Lactated Ringer's Confirm 07/17/19 11:56 Ringers, Lactated Administered 07/17/19 11:57 Dose 1,000 mls @ as directed .ROUTE .STK-MED ONE Iopamidol 100 ml 07/16/19 19:51 07/16/19 20:05 Isovue-300 (61%) IVPUSH 07/16/19 19:52 100 ml ONETIME ONE Administration Ketorolac Tromethamine Confirm 07/17/19 12:22 Toradol Administered 07/17/19 12:23 Dose 30 mg .ROUTE .STK-MED ONE Lidocaine/Epinephrine Confirm 07/17/19 11:27 07/17/19 12:03 Xylocaine 1% With Epinephrine 1:100,000 Administered 07/17/19 11:28 20 ml Dose Administration 20 ml .ROUTE .STK-MED ONE Lorazepam 1 mg 07/17/19 00:24 07/17/19 00:29 Ativan IVPUSH 07/17/19 00:25 1 mg ONETIME ONE Administration Metoclopramide HCl 10 mg 07/16/19 18:53 07/16/19 19:02 Reglan IVPUSH 02/25/20 18:54 10 mg ONETIME ONE Administration Midazolam HCl Confirm 07/17/19 10:35 Versed 1 Mg/Ml Administered 07/17/19 10:36 Dose 2 mg .ROUTE .STK-MED ONE Neostigmine Methylsulfate Confirm 07/17/19 12:21 Neostigmine Methylsulfate Administered 07/17/19 12:22 Dose 5 mg .ROUTE .STK-MED ONE Ondansetron HCl Confirm 07/17/19 10:34 Zofran Administered 07/17/19 10:35 Dose 4 mg .ROUTE .STK-MED ONE Ondansetron HCl 4 mg 07/17/19 12:51 Zofran IVPUSH 07/17/19 18:00 ONETIME PRN Nausea/Vomiting Propofol Confirm 07/17/19 10:35 Diprivan 20 Ml Administered 07/17/19 10:36 Dose 200 mg .ROUTE .STK-MED ONE Propofol Confirm 07/17/19 11:27 Diprivan 20 Ml Administered 07/17/19 11:28 Dose 200 mg .ROUTE .STK-MED ONE Rocuronium Cuney Confirm 07/17/19 10:34 Zemuron Administered 07/17/19 10:35 Dose 50 mg .ROUTE .STK-MED ONE Sodium Chloride 10 ml 07/16/19 19:51 07/16/19 20:05 Saline Flush FLUSH 10 ml ONETIME PRN Administration KEEP VEIN OPEN - Radiology Interpretation Free Text/Narrative:: 34-year-old male [place] descent presents to the ED with a swelling and pain and now purulent serosanguineous drainage from his perianal area on the left side. He has had a painful swollen area there for about 4 days and it opened up this morning when he sat on something hard and drained purulent material. Patient has had a perianal abscess x3 in the past that required incision and drainage. 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 Unfortunately the abscesses occurred in the same spot. He has a smaller 2 cm superficial minimally fluctuant abscess in his right inguinal area that also deserves incision and drainage. He is n.p.o. since 2:00 this afternoon. Plan will be to have routine labs performed as he is a type II diabetic and does not check his blood sugars. Cultures were done as well. He will be started on Flagyl 500 mg IV and Zosyn 4.5 g IV. We will give Dr. Martinez on-call surgeon button spindler to see this gentleman in the ED with suspect need to go to the OR for drainage of abscess. - Re-Assessments/Exams Free Text/Narrative Re-Assessment/Exam: 07/16/19 19:40 Coags are back and reveal a PT of 10.9 INR 1.0 PTT of 26. Chemistry shows a sodium of 137 with a potassium of 3.7. Chloride is 101 with a bicarb of 25. Anion gap is 14.7. BUN is 13 with a creatinine of 0.8. GFR is greater than 60. Glucose is 267 calcium is 9.0 magnesium is 1.8 total bilirubin is 0.9 liver function otherwise is normal. C-reactive protein is less than 0.2 total protein is 7.3 with albumin fraction of 4.0 . 07/16/19 19:48 I have spoken with Dr. Martinez call surgeon and he will see the patient in the ED. He request that we perform a CT of the pelvis with IV contrast to see if we can further delineate the abscess size and depth. . 07/16/19 20:09 White count is normal at 8.64. Differential shows 58% neutrophils and 2 bands reported. Hemoglobin is 17.4 with a hematocrit of 51.6 indicating some degree of hemoconcentration. Platelet count is 234,000. FLORIAN globin A1c is 9.0 indicating very poor control of his diabetes and he will need to return to diabetic meds. 07/16/19 21:09 CT of the pelvis has been completed. It does reveal soft tissue inflammation adjacent to the anus. This is all on the left side. There is no obvious abscess per se. 07/16/19 22:00 Dr Martinez -- surgeon has seen him in consultation and after viewing the CT scan is not enough of an abscess to go after tonight. He would prefer to explore him under local general anesthetic in the morning as he suspects a fistula in anal once again having recurred. Then he could open and fix this during the surgery. At present we only have an ICU bed and we are otherwise on diversion. He will therefore remain in the ED overnight. 07/17/19 00:25 checked in on the patient and he is still having significant rectal pain which she reports is 7 or 8 out of 10. States he just been putting up with it. He is not able to fall asleep and is actively playing with his phone. It would be important for him to get a good night sleep before surgery in the morning. I am therefore going to give him Dilaudid 1 mg IV and Ativan 1 mg IV so that he can get some sleep. He was happy to try and get some pain relief for a few hours. 07/17/19 02:20: Patient has been sleeping comfortably for the last hour and a half since receiving Dilaudid intra-venously and Ativan 1 mg. At this point time no surgical time has been arranged for the patient to go to the OR. He will likely be treated and then discharged home later today. Departure - Departure Time of Disposition: 16:55 Disposition: Home, Self-Care 01 Condition: Fair Clinical Impression: Abscess, renal/perirenal, Anorectal fistula - Discharge Information Sepsis Event Note - Evaluation Sepsis Screening Result: No Definite Risk - Focused Exam Date Exam was Performed: 07/19/19 Time Exam was Performed: 07:54
[2019-07-16] MEDS ORDERED: Sodium Chloride 0.9% 1,000 ML IV SCH (19:00)
[2019-07-16] MEDS ORDERED: Iopamidol 612 MG/ML 100 ML Bottle IVPUSH ONE (19:51)
[2019-07-16] MEDS ORDERED: Sodium Chloride 0.9% 10 ML Syringe FLUSH PRN (19:51)
--- NOTE | 2019-07-16 21:53 | PCM.HP.2 ---
H&P History of Present Illness - General Date of Service: 07/16/19 Source of Information: Patient History Limitations: Reports: No Limitations - History of Present Illness Initial Comments - Free Text/Narative: Patient started to have perianal pain 3 days ago. This was associated with a swelling. It progressed over time and the swelling grew. It bursted earlier today and drained bloody pus. He denies any fevers or chills. 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 Onset of Symptoms: Reports: Gradual Duration of Symptoms: Reports: Day(s):, Getting Worse Location: Reports: Other (perianal) Quality: Reports: Sharp Severity: Severe Improves with: Reports: Immobilization Worsens with: Reports: Movement Rectal Pain Score (Numeric/FACES): 7 - Related Data Allergies/Adverse Reactions: Allergies Allergy/AdvReac Type Severity Reaction Status Date / Time No Known Allergies Allergy Verified 07/16/19 16:39 Home Medications: Home Meds . [No Known Home Meds] 07/16/19 [History] Past Medical History HEENT History: Reports: None Cardiovascular History: Reports: High Cholesterol, Hypertension Respiratory History: Reports: None Gastrointestinal History: Reports: Other (See Below) Other Gastrointestinal History: hank rectal and incision and drainage Genitourinary History: Reports: None [employer] History: Reports: None Musculoskeletal History: Reports: None Neurological History: Reports: None Psychiatric History: Reports: None Endocrine/Metabolic History: Reports: Diabetes, Type II (Really not taking any medication. Prior to this he was taking metformin), Other (See Below) Other Endocrine/Metabolic History: pancreatitis Hematologic History: Reports: None Immunologic History: Reports: None Oncologic (Cancer) History: Reports: None Dermatologic History: Reports: None - Past Surgical History Head Surgeries/Procedures: Reports: None HEENT Surgical History: Reports: None Cardiovascular Surgical History: Reports: None Respiratory Surgical History: Reports: None GI Surgical History: Reports: None Male Surgical History: Reports: None Endocrine Surgical History: Reports: None Neurological Surgical History: Reports: None Musculoskeletal Surgical History: Reports: None Oncologic Surgical History: Reports: None Social & Family History - Family History Family Medical History: Noncontributory Endocrine/Metabolic: Reports: Diabetes, Type I - Tobacco Use Smoking Status *Q: Never Smoker - Caffeine Use Caffeine Use: Reports: Coffee - Recreational Drug Use Recreational Drug Use: Yes Drug Use in Last 12 Months: Yes Recreational Drug Type: Reports: Marijuana/Hashish - Living Situation & Occupation Living situation: Reports: Occupation: Employed (He did work all day today.) H&P Review of Systems - Review of Systems: Review Of Systems: See Below General: Reports: No Symptoms HEENT: Reports: No Symptoms Pulmonary: Reports: No Symptoms Cardiovascular: Reports: No Symptoms Gastrointestinal: Reports: No Symptoms Genitourinary: Reports: No Symptoms Musculoskeletal: Reports: No Symptoms Skin: Reports: No Symptoms Neurological: Reports: No Symptoms Hematologic/Lymphatic: Reports: No Symptoms Immunologic: Reports: No Symptoms Exam - Exam Exam: See Below - Vital Signs Vital Signs: Last Vital Signs Temp 98.5 F 07/16/19 16:34 Pulse 87 07/16/19 16:34 Resp 16 07/16/19 16:34 BP 137/85 07/16/19 16:34 Pulse Ox 98 07/16/19 16:34 Weight: 99.79 kg - Exam General: Alert, Oriented, Cooperative, Mild Distress HEENT: Conjunctiva Clear Neck: Supple, Trachea Midline Lungs: Clear to Auscultation, Normal Respiratory Effort Cardiovascular: Regular Rate, Regular Rhythm, Normal S1, Normal S2 GI/Abdominal Exam: Normal Bowel Sounds Rectal (Males) Exam: Other (Perirectal scar with induration, no drainage, tender to palpation) - Patient Data Lab Results Last 24 hrs: Laboratory Results - last 24 hr 07/16/19 07/16/19 07/16/19 Range/Units 18:55 18:55 18:55 WBC 8.64 (4.23-9.07) K/mm3 RBC 5.94 (4.63-6.08) M/mm3 Hgb 17.4 (13.7-17.5) gm/dl Hct 51.6 H (40.1-51.0) % MCV 86.9 D (79.0-92.2) fl MCH 29.3 (25.7-32.2) pg MCHC 33.7 (32.2-35.5) g/dl RDW Std Deviation 35.5 (35.1-43.9) fL Plt Count 234 (163-337) K/mm3 MPV 10.9 (9.4-12.3) fl Neutrophils % (Manual) 58 (40-60) % Band Neutrophils % 2 (0-10) % Lymphocytes % (Manual) 31 (20-40) % Atypical Lymphs % 3 % Monocytes % (Manual) 5 (2-10) % Eosinophils % (Manual) 1 (0.8-7.0) % Basophils % (Manual) 0 L (0.2-1.2) Platelet Estimate Adequate RBC Morph Comment Normal PT 10.9 (9.7-12.0) SECONDS INR 1.00 APTT 26 (22-31) SECONDS Sodium 137 (136-145) mEq/L Potassium 3.7 (3.5-5.1) mEq/L Chloride 101 (98-107) mEq/L Carbon Dioxide 25 (21-32) mEq/L Anion Gap 14.7 (5-15) BUN 13 (7-18) mg/dL Creatinine 0.8 (0.7-1.3) mg/dL Est Cr Clr Drug Dosing 135.61 mL/min Estimated GFR (MDRD) > 60 (>60) mL/min BUN/Creatinine Ratio 16.3 (14-18) Glucose 267 H (74-106) mg/dL Hemoglobin A1c (4.50-6.20) % Serum Osmolality (280-300) mosm/kg Lactic Acid (0.4-2.0) mmol/L Calcium 9.0 (8.5-10.1) mg/dL Magnesium 1.8 (1.8-2.4) mg/dl Total Bilirubin 0.9 (0.2-1.0) mg/dL AST 13 L (15-37) U/L ALT 32 (16-63) U/L Alkaline Phosphatase 67 (46-116) U/L C-Reactive Protein <0.2 (<1.0) mg/dL Total Protein 7.3 (6.4-8.2) g/dl Albumin 4.0 (3.4-5.0) g/dl Globulin 3.3 gm/dL Albumin/Globulin Ratio 1.2 (1-2) Urine Color (Yellow) Urine Appearance (Clear) Urine pH (5.0-8.0) Ur Specific [place] (1.005-1.030) Urine Protein (Negative) Urine Glucose (UA) (Negative) Urine Ketones (Negative) Urine Occult Blood (Negative) Urine Nitrite (Negative) Urine Bilirubin (Negative) Urine Urobilinogen (0.2-1.0) Ur Leukocyte Esterase (Negative) Urine RBC (0-5) /hpf Urine WBC (0-5) /hpf Ur Squamous Epith Cells (0-5) /hpf Urine Bacteria (FEW) /hpf Urine Mucus (FEW) /hpf 07/16/19 07/16/19 07/16/19 Range/Units 18:55 18:55 19:22 WBC (4.23-9.07) K/mm3 RBC (4.63-6.08) M/mm3 Hgb (13.7-17.5) gm/dl Hct (40.1-51.0) % MCV (79.0-92.2) fl MCH (25.7-32.2) pg MCHC (32.2-35.5) g/dl RDW Std Deviation (35.1-43.9) fL Plt Count (163-337) K/mm3 MPV (9.4-12.3) fl Neutrophils % (Manual) (40-60) % Band Neutrophils % (0-10) % Lymphocytes % (Manual) (20-40) % Atypical Lymphs % % Monocytes % (Manual) (2-10) % Eosinophils % (Manual) (0.8-7.0) % Basophils % (Manual) (0.2-1.2) Platelet Estimate RBC Morph Comment PT (9.7-12.0) SECONDS INR APTT (22-31) SECONDS Sodium (136-145) mEq/L Potassium (3.5-5.1) mEq/L Chloride (98-107) mEq/L Carbon Dioxide (21-32) mEq/L Anion Gap (5-15) BUN (7-18) mg/dL Creatinine (0.7-1.3) mg/dL Est Cr Clr Drug Dosing mL/min Estimated GFR (MDRD) (>60) mL/min BUN/Creatinine Ratio (14-18) Glucose (74-106) mg/dL Hemoglobin A1c 9.00 H (4.50-6.20) % Serum Osmolality 300 (280-300) mosm/kg Lactic Acid 1.1 (0.4-2.0) mmol/L Calcium (8.5-10.1) mg/dL Magnesium (1.8-2.4) mg/dl Total Bilirubin (0.2-1.0) mg/dL AST (15-37) U/L ALT (16-63) U/L Alkaline Phosphatase (46-116) U/L C-Reactive Protein (<1.0) mg/dL Total Protein (6.4-8.2) g/dl Albumin (3.4-5.0) g/dl Globulin gm/dL Albumin/Globulin Ratio (1-2) Urine Color (Yellow) Urine Appearance (Clear) Urine pH (5.0-8.0) Ur Specific [place] (1.005-1.030) Urine Protein (Negative) Urine Glucose (UA) (Negative) Urine Ketones (Negative) Urine Occult Blood (Negative) Urine Nitrite (Negative) Urine Bilirubin (Negative) Urine Urobilinogen (0.2-1.0) Ur Leukocyte Esterase (Negative) Urine RBC (0-5) /hpf Urine WBC (0-5) /hpf Ur Squamous Epith Cells (0-5) /hpf Urine Bacteria (FEW) /hpf Urine Mucus (FEW) /hpf 07/16/ Range/Units 20:35 WBC (4.23-9.07) K/mm3 RBC (4.63-6.08) M/mm3 Hgb (13.7-17.5) gm/dl Hct (40.1-51.0) % MCV (79.0-92.2) fl MCH (25.7-32.2) pg MCHC (32.2-35.5) g/dl RDW Std Deviation (35.1-43.9) fL Plt Count (163-337) K/mm3 MPV (9.4-12.3) fl Neutrophils % (Manual) (40-60) % Band Neutrophils % (0-10) % Lymphocytes % (Manual) (20-40) % Atypical Lymphs % % Monocytes % (Manual) (2-10) % Eosinophils % (Manual) (0.8-7.0) % Basophils % (Manual) (0.2-1.2) Platelet Estimate RBC Morph Comment PT (9.7-12.0) SECONDS INR APTT (22-31) SECONDS Sodium (136-145) mEq/L Potassium (3.5-5.1) mEq/L Chloride (98-107) mEq/L Carbon Dioxide (21-32) mEq/L Anion Gap (5-15) BUN (7-18) mg/dL Creatinine (0.7-1.3) mg/dL Est Cr Clr Drug Dosing mL/min Estimated GFR (MDRD) (>60) mL/min BUN/Creatinine Ratio (14-18) Glucose (74-106) mg/dL Hemoglobin A1c (4.50-6.20) % Serum Osmolality (280-300) mosm/kg Lactic Acid (0.4-2.0) mmol/L Calcium (8.5-10.1) mg/dL Magnesium (1.8-2.4) mg/dl Total Bilirubin (0.2-1.0) mg/dL AST (15-37) U/L ALT (16-63) U/L Alkaline Phosphatase (46-116) U/L C-Reactive Protein (<1.0) mg/dL Total Protein (6.4-8.2) g/dl Albumin (3.4-5.0) g/dl Globulin gm/dL Albumin/Globulin Ratio (1-2) Urine Color Yellow (Yellow) Urine Appearance Clear (Clear) Urine pH 5.5 (5.0-8.0) Ur Specific [place] > or = 1.030 (1.005-1.030) Urine Protein 2+ H (Negative) Urine Glucose (UA) 2+ H (Negative) Urine Ketones Trace H (Negative) Urine Occult Blood Negative (Negative) Urine Nitrite Negative (Negative) Urine Bilirubin Negative (Negative) Urine Urobilinogen 0.2 (0.2-1.0) Ur Leukocyte Esterase Negative (Negative) Urine RBC 0-5 (0-5) /hpf Urine WBC 0-5 (0-5) /hpf Ur Squamous Epith Cells 0-5 (0-5) /hpf Urine Bacteria Few (FEW) /hpf Urine Mucus Few (FEW) /hpf Result Diagrams: 07/16/19 18:55 07/16/19 18:55 Sepsis Event Note - Evaluation Sepsis Screening Result: No Definite Risk - Focused Exam Vital Signs: Vital Signs Temp Pulse Resp BP Pulse Ox 07/16/19 16:34 98.5 F 87 16 137/85 98 Date Exam was Performed: 07/16/19 Time Exam was Performed: 21:47 Problem List Initiated/Reviewed/Updated: No Orders Last 24hrs: Active Orders 24 hr Category Date Time Status Pelvis w Cont [CT] Stat Exams 07/16/19 19:45 Taken CULTURE BLOOD [BC] Stat Lab 07/16/19 19:15 Received CULTURE BLOOD [BC] Stat Lab 07/16/19 19:22 Received Sodium Chloride 0.9% [Normal Saline] 1,000 ml Med 07/16/19 19:00 Active IV ASDIRECTED Sodium Chloride 0.9% [Saline Flush] Med 07/16/19 19:51 Active 10 ml FLUSH ONETIME PRN Blood Culture x2 Reflex Set [OM.PC] Stat Oth 07/16/19 18:54 Ordered Medication Orders Sodium Chloride (Normal Saline) 1,000 mls @ 500 mls/hr IV ASDIRECTED IVIS Last Admin: 07/16/19 19:02 Dose: 500 mls/hr Sodium Chloride (Saline Flush) 10 ml FLUSH ONETIME PRN PRN Reason: KEEP VEIN OPEN Last Admin: 07/16/19 20:05 Dose: 10 ml Assessment/Plan Comment:: Patient has perianal abscess that may be associated with a fistula. VSS, WBC normal. CT shows no residual collection. - Will perform anorectal exam under anesthesia in the AM - Regular diet now, NPO at Midnight - LR at 50cc/hr - COntinue IV flagyl 500mg TID - Pain control with Tylenol for mild and Percocet for severe pain. - Mortality Measure Prognosis:: Good
[2019-07-16] MEDS ORDERED: Docusate Sodium 100 MG Cap PO SCH (22:15)
[2019-07-16] MEDS ORDERED: Lactated Ringers 1,000 ML IV SCH (22:30)
[2019-07-17] MEDS ORDERED: LORazepam 2 MG/ML SDV IVPUSH ONE (00:24)
[2019-07-17] MEDS ORDERED: HYDROmorphone 1 MG/ML Syringe IVPUSH ONE (00:25)
[2019-07-17] MEDS: metroNIDAZOLE/Normal Saline 500 MG in Premix Bag 1 BAG IV SCH ×2 (02:43→11:21)
--- NOTE | 2019-07-17 10:20 | PCM.PREANE ---
Preanesthetic Assessment - Anesthesia/Transfusion/Family Hx Anesthesia History: Prior Anesthesia Without Reaction Family History of Anesthesia Reaction: No Transfusion History: Prior Transfusion Without Reaction Intubation History: Unknown - Review of Systems General: Fever, Chills (with abscess) Pulmonary: No Symptoms Cardiovascular: No Symptoms Gastrointestinal: No Symptoms Neurological: No Symptoms Other: Reports: Diabetes (stopped taking meds) - Physical Assessment NPO Status Date: 07/16/19 NPO Status Time: 23:50 Vital Signs: Last Vital Signs Temp 98.0 F 07/17/19 10:00 Pulse 80 07/17/19 10:00 Resp 16 07/17/19 10:00 BP 129/83 07/17/19 10:00 Pulse Ox 98 07/17/19 10:00 Height: 5 ft 10 in Weight: 99.79 kg ASA Class: 2 Mental Status: Alert & Oriented x3 Airway Class: Mallampati = 1 Dentition: Reports: Normal Dentition Thyro-Mental Finger Breadths: 3 Mouth Opening Finger Breadths: 3 ROM/Head Extension: Full Lungs: Clear to Auscultation, Normal Respiratory Effort Cardiovascular: Regular Rate, Regular Rhythm - Lab Values: Laboratory Last Values WBC 8.64 K/mm3 (4.23-9.07) 07/16/19 18:55 RBC 5.94 M/mm3 (4.63-6.08) 07/16/19 18:55 Hgb 17.4 gm/dl (13.7-17.5) 07/16/19 18:55 Hct 51.6 % (40.1-51.0) H 07/16/19 18:55 MCV 86.9 fl (79.0-92.2) D 07/16/19 18:55 MCH 29.3 pg (25.7-32.2) 07/16/19 18:55 MCHC 33.7 g/dl (32.2-35.5) 07/16/19 18:55 RDW Std Deviation 35.5 fL (35.1-43.9) 07/16/19 18:55 Plt Count 234 K/mm3 (163-337) 07/16/19 18:55 MPV 10.9 fl (9.4-12.3) 07/16/19 18:55 Neutrophils % (Manual) 58 % (40-60) 07/16/19 18:55 Band Neutrophils % 2 % (0-10) 07/16/19 18:55 Lymphocytes % (Manual) 31 % (20-40) 07/16/19 18:55 Atypical Lymphs % 3 % 07/16/19 18:55 Monocytes % (Manual) 5 % (2-10) 07/16/19 18:55 Eosinophils % (Manual) 1 % (0.8-7.0) 07/16/19 18:55 Basophils % (Manual) 0 (0.2-1.2) L 07/16/19 18:55 Platelet Estimate Adequate 07/16/19 18:55 RBC Morph Comment Normal 07/16/19 18:55 PT 10.9 SECONDS (9.7-12.0) 07/16/19 18:55 INR 1.00 07/16/19 18:55 APTT 26 SECONDS (22-31) 07/16/19 18:55 Sodium 137 mEq/L (136-145) 07/16/19 18:55 Potassium 3.7 mEq/L (3.5-5.1) 07/16/19 18:55 Chloride 101 mEq/L (98-107) 07/16/19 18:55 Carbon Dioxide 25 mEq/L (21-32) 07/16/19 18:55 Anion Gap 14.7 (5-15) 07/16/19 18:55 BUN 13 mg/dL (7-18) 07/16/19 18:55 Creatinine 0.8 mg/dL (0.7-1.3) 07/16/19 18:55 Est Cr Clr Drug Dosing 135.61 mL/min 07/16/19 18:55 Estimated GFR (MDRD) > 60 mL/min (>60) 07/16/19 18:55 BUN/Creatinine Ratio 16.3 (14-18) 07/16/19 18:55 Glucose 267 mg/dL (74-106) H 07/16/19 18:55 Hemoglobin A1c 9.00 % (4.50-6.20) H 07/16/19 18:55 Serum Osmolality 300 mosm/kg (280-300) 07/16/19 18:55 Lactic Acid 1.1 mmol/L (0.4-2.0) 07/16/19 19:22 Calcium 9.0 mg/dL (8.5-10.1) 07/16/19 18:55 Magnesium 1.8 mg/dl (1.8-2.4) 07/16/19 18:55 Total Bilirubin 0.9 mg/dL (0.2-1.0) 07/16/19 18:55 AST 13 U/L (15-37) L 07/16/19 18:55 ALT 32 U/L (16-63) 07/16/19 18: Alkaline Phosphatase 67 U/L (46-116) 07/16/19 18: C-Reactive Protein <0.2 mg/dL (<1.0) 07/16/19 18: Total Protein 7.3 g/dl (6.4-8.2) 07/16/19: Albumin 4.0 g/dl (3.4-5.0) 07/16/19: Globulin 3.3 gm/dL 07/16/19 18: Albumin/Globulin Ratio 1.2 (1-2) 07/16/19 18: Urine Color Yellow (Yellow) 07/16/19: Urine Appearance Clear (Clear) 07/16/19: Urine pH 5.5 (5.0-8.0) 07/16/19: Ur Specific [place] > or = 1.030 (1.005-1.030) 07/16/19: Urine Protein 2+ (Negative) H 07/16/19:35 Urine Glucose (UA) 2+ (Negative) H 07/16/19:35 Urine Ketones Trace (Negative) H 07/16/19:35 Urine Occult Blood Negative (Negative) 07/16/19: Urine Nitrite Negative (Negative) 07/16/19:35 Urine Bilirubin Negative (Negative) 07/16/19: Urine Urobilinogen 0.2 (0.2-1.0) 07/16/19:35 Ur Leukocyte Esterase Negative (Negative) 07/16/19: Urine RBC 0-5 /hpf (0-5) 07/16/19:35 Urine WBC 0-5 /hpf (0-5) 07/16/19:35 Ur Squamous Epith Cells 0-5 /hpf (0-5) 07/16/19: Urine Bacteria Few /hpf (FEW) 02/25/20 20:35 Urine Mucus Few /hpf (FEW) 07/16/19 20:35 - Allergies Allergies/Adverse Reactions: Allergies Allergy/AdvReac Type Severity Reaction Status Date / Time No Known Allergies Allergy Verified 07/16/19 16:39 - Blood Blood Available: No - Acknowledgements Anesthesia Type Planned: General Anesthesia Pt an Appropriate Candidate for the Planned Anesthesia: Yes Alternatives and Risks of Anesthesia Discussed w Pt/Guardian: Yes Pt/Guardian Understands and Agrees with Anesthesia Plan: Yes PreAnesthesia Questionnaire HEENT History: Reports: None Cardiovascular History: Reports: High Cholesterol, Hypertension Respiratory History: Reports: None Gastrointestinal History: Reports: Other (See Below) Other Gastrointestinal History: hank rectal and incision and drainage Genitourinary History: Reports: None [employer]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 Prior to this he was taking metformin), Other (See Below) Other Endocrine/Metabolic History: pancreatitis Hematologic History: Reports: None Immunologic History: Reports: None Oncologic (Cancer) History: Reports: None Dermatologic History: Reports: None - Past Surgical History Head Surgeries/Procedures: Reports: None HEENT Surgical History: Reports: None Cardiovascular Surgical History: Reports: None Respiratory Surgical History: Reports: None GI Surgical History: Reports: None, Other (See Below) (rectal absscess times3) Male Surgical History: Reports: None Endocrine Surgical History: Reports: None Neurological Surgical History: Reports: None Musculoskeletal Surgical History: Reports: None Oncologic Surgical History: Reports: None - SUBSTANCE USE Smoking Status *Q: Current Every Day Smoker Tobacco Use Within Last Twelve Months: Other (See Below) (marijuana) Second Hand Smoke Exposure: Yes Days Per Week of Alcohol Use: 2 Number of Drinks Per Day: 7 Total Drinks Per Week: 14 Recreational Drug Use History: Yes Recreational Drug Type: Reports: Marijuana/Hashish - HOME MEDS Home Medications: Home Meds . [No Known Home Meds] 07/16/19 [History] - CURRENT (IN HOUSE) MEDS Current Meds: Current Medications Docusate Sodium (Colace) 100 mg PO BID IVIS Last Admin: 07/16/19 22:48 Dose: 100 mg Sodium Chloride (Normal Saline) 1,000 mls @ 500 mls/hr IV ASDIRECTED [facility] [place] Last Admin: 07/16/19 19:02 Dose: 500 mls/hr Lactated Ringer's (Ringers, Lactated) 1,000 mls @ 50 mls/hr IV ASDIRECTED [facility] [place] Last Admin: 07/16/19 22:48 Dose: 50 mls/hr Metronidazole 500 mg/ Premix 100 mls @ 100 mls/hr IV Q8H [facility] [place] Last Admin: 07/17/19 02:43 Dose: 100 mls/hr Sodium Chloride (Saline Flush) 10 ml FLUSH ONETIME PRN PRN Reason: KEEP VEIN OPEN Last Admin: 07/16/19 20:05 Dose: 10 ml Discontinued Medications Hydromorphone HCl (Dilaudid) 1 mg IVPUSH ONETIME ONE Stop: 07/16/19 18:54 Last Admin: 07/16/19 19:02 Dose: 1 mg Hydromorphone HCl (Dilaudid) 1 mg IVPUSH ONETIME ONE Stop: 07/17/19 00:26 Last Admin: 07/17/19 00:29 Dose: 1 mg Metronidazole 500 mg/ Premix 100 mls @ 100 mls/hr IV ONETIME ONE Stop: 07/16/19 19:54 Last Admin: 07/16/19 19:04 Dose: 100 mls/hr Piperacillin Sod/Tazobactam (Sod 4.5 gm/ Sodium Chloride) 100 mls @ 200 mls/hr IV ONETIME ONE Stop: 07/16/19 19:25 Last Admin: 07/16/19 19:04 Dose: 200 mls/hr Iopamidol (Isovue-300 (61%)) 100 ml IVPUSH ONETIME ONE Stop: 07/16/19 19:52 Last Admin: 07/16/19 20:05 Dose: 100 ml Lorazepam (Ativan) 1 mg IVPUSH ONETIME ONE Stop: 07/17/19 00:25 Last Admin: 07/17/19 00:29 Dose: 1 mg Metoclopramide HCl (Reglan) 10 mg IVPUSH ONETIME ONE Stop: 07/16/19 18:54 Last Admin: 07/16/19 19:02 Dose: 10 mg
[2019-07-17] MEDS ORDERED: Lidocaine 1% 4 ML ONE (10:34)
[2019-07-17] MEDS ORDERED: Ondansetron 4 MG/2 ML SDV ONE (10:34)
[2019-07-17] MEDS ORDERED: Rocuronium 50 MG/5 ML Vial ONE (10:34)
[2019-07-17] MEDS ORDERED: Propofol 200 MG/20 ML SDV ONE ×2 (10:35→11:27)
[2019-07-17] MEDS ORDERED: Midazolam 1 MG/ML 2 ML SDV ONE (10:35)
[2019-07-17] MEDS ORDERED: fentaNYL 250 MCG/5 ML SDV ONE (10:35)
[2019-07-17] MEDS ORDERED: metroNIDAZOLE/Normal Saline 500 MG in Premix Bag 1 BAG IV SCH (11:15)
[2019-07-17] MEDS ORDERED: Bupivacaine 0.5%/EPINEPHrine 1:200,000 50 ML MDV ONE (11:27)
[2019-07-17] MEDS ORDERED: Lidocaine 1% with EPINEPHrine 1:100,000 20 ML MDV ONE (11:27)
[2019-07-17] MEDS ORDERED: Lactated Ringers 1,000 ML ONE (11:56)
[2019-07-17] MEDS ORDERED: Ketorolac 30 MG/ML SDV ONE (12:22)
[2019-07-17] MEDS ORDERED: Ondansetron 4 MG/2 ML SDV IVPUSH PRN (12:51)
[2019-07-17] MEDS ORDERED: HYDROmorphone 0.5 MG/0.5 ML Syringe IVPUSH PRN (12:51)
[2019-07-17] MEDS ORDERED: fentaNYL 100 MCG/2 ML SDV IVPUSH PRN (12:51)
--- NOTE | 2019-07-17 12:53 | PCM.POSTAN ---
POST ANESTHESIA ASSESSMENT - MENTAL STATUS Mental Status: Other (Drowsy) - VITAL SIGNS Vital Signs: Last Vital Signs Temp 36.7 C 07/17/19 10:00 Pulse 80 07/17/19 10:00 Resp 16 07/17/19 10:00 BP 129/83 07/17/19 10:00 Pulse Ox 98 07/17/19 10:00 07/17/19 129/67 90 15 97.8F 100% - RESPIRATORY Respiratory Status: Respiratory Rate WNL, Airway Patent, O2 Saturation Stable, Supplemental Oxygen - CARDIOVASCULAR CV Status: Pulse Rate WNL, Blood Pressure Stable - GASTROINTESTINAL GI Status: No Symptoms - PAIN Pain Score: 0 - POST OP HYDRATION Hydration Status: Adequate & Stable
--- NOTE | 2019-07-17 13:15 | PCM48HPAN ---
Post Anesthesia Note - EVALUATION WITHIN 48HRS OF ANESTHETIC Vital Signs in Normal Range: Yes Patient Participated in Evaluation: Yes Respiratory Function Stable: Yes Airway Patent: Yes Cardiovascular Function Stable: Yes Hydration Status Stable: Yes Pain Control Satisfactory: Yes Nausea and Vomiting Control Satisfactory: Yes Mental Status Recovered: Yes Vital Signs: Last Vital Signs Temp 36.6 C 07/17/19 13:00 Pulse 78 07/17/19 13:00 Resp 17 07/17/19 13:00 BP 129/63 07/17/19 13:00 Pulse Ox 100 07/17/19 13:00
--- NOTE | 2019-07-17 14:29 | CT ---
CT pelvis Technique: Multiple axial sections were obtained from above the iliac crests inferiorly through the pubic symphysis and anus. Reconstructed coronal and sagittal images were also reviewed. Findings: There is mild soft tissue density being seen along the left side of the anus. There is no focal low density areas to suggest a discrete abscess at this time. Appendix is seen and is normal in size. No intrapelvic abnormality is appreciated. Bone window settings show nothing acute. Impression: 1. Soft tissue density along the left side of the anus, this could represent scarring from previous infection but more likely is due to acute inflammation. No low density area is seen to suggest abscess at this time. 2. No additional abnormality is appreciated on CT study of the pelvis. Diagnostic code #3 This report was dictated in [place] Standard Time MTDD
--- NOTE | 2019-07-18 13:45 | OR ---
DATE OF OPERATION: 07/17/2019 SURGEON: Conner Martinez MD PREOPERATIVE DIAGNOSIS: Perianal fistula. POSTOPERATIVE DIAGNOSIS: 1. Small perianal abscess. 2. Right inguinal abscess. OPERATION PERFORMED: Anorectal examination under anesthesia with drainage of perianal abscess and drainage of right inguinal abscess. ANESTHESIA: General endotracheal. ESTIMATED BLOOD LOSS: 10 mL. INDICATION AND CONSENT: Mr. 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 He underwent fistulectomy a year ago. The patient had perianal pain for about 3 days. The pain became severe the day before presentation and the area started to drain on its own. The patient presented to the emergency department after drainage due to increasing pain and workup revealed normal white count, but CT scan showed some inflammatory change in the left perianal area without any significant abscess. There was also a small abscess in the right inguinal area that was about 2 cm. I evaluated the patient, confirmed the findings and offered the patient anorectal examination under anesthesia because the patient did complain of mild passing of gas through the fistula site. I discussed with the patient risks, benefits, and alternatives. Risks discussed including bleeding, recurrence, infection, and need for further operations. The patient agreed and informed consent was obtained. DESCRIPTION OF PROCEDURE: The patient was taken to the operating room, placed in supine position. Following induction of general endotracheal anesthesia, the patient's position was changed into prone. The buttocks were taped to expose the anal area, and the area was prepped and draped in the usual sterile fashion. A formal time-out was performed prior to the start of the procedure. I began the procedure by examining the perianal area. There was a large visible scar in the left perianal aspect. This was the area of tenderness, and there was a small area of granulation tissue indicating previous site of spontaneous drainage. Palpation did not reveal expression of pus, but there was slight fluctuance on the left side just beyond the scar tissue. Digital rectal exam was normal. We placed a Hill-Lemons retractor, examined the entire anorectal mucosa which was normal. There was no sign of induration, fluctuance, or discharge of pus. The scar tissue was once again examined. The area of granular tissue was opened up with the #11 blade. There was small amount of pus that came out. Loculations were broken down and the area was irrigated. Since the pocket was very small, there was no need for packing. We used lacrimal duct probe to look for any open fistulas. There were no tracts, therefore, there were no fistulas. At this point, the exam was concluded. The area was widely injected with 1:1 ratio of 0.5 Marcaine with 1% lidocaine with epinephrine. The area was dressed with fluffs, ABD pad and mesh patties. The patient was turned now to prone position. The right groin area was examined. The abscess site was noted. This was prepped. 0.5 Marcaine was injected. The abscess was opened and drained out. Culture swabs sent. Loculations were broken and irrigated. The abscess was small. There was no need for packing. The site was dressed with 4 x 4 gauze. This marked the end of procedure. At the end of the procedure, all instruments, sharps, and sponges were accounted for and found to be correct x2. The patient was awoken from general anesthesia, extubated, and taken to the PACU in stable condition. The patient will be discharged home today with stool softeners, sitz baths and pain medication. He will return to clinic as needed for followup. [facility] /[id number] ZACK
== END 2019-07-17 14:15 | disposition home or self-care (01) ==
LOC: JD.ED 16:26 → JD.SDS 07-17 07:24
PROVIDERS: ATTEND Surgery
DX: K61.0 Anal abscess (principal); L02.214 Cutaneous abscess of groin; I10 Essential (primary) hypertension; E78.00 Pure hypercholesterolemia, unspecified; E11.9 Type 2 diabetes mellitus without complications; Z79.899 Other long term (current) drug therapy
CPT/HCPCS: 36415; 46050; 49999; 72193; 80053; 81001; 82962; 83036; 83605; 83735; 83930; 85007; 85027; 85610; 85730; 86140; 87040; 87075; 87205; A9270; J1170; J1885; J2001; J2060; J2250; J2405; J2543; J2704; J2765; J3010; J3490; J7030; J7050; J7120; Q9967; 00902; 87076; 87181; 99284

== ENCOUNTER 2019-12-28 18:07 | Emergency (ER) | payer SELFPAY ==
[2019-12-28] MEDS ORDERED: Bupivacaine 0.5% 10 ML SDV INJECT ONE (18:22)
--- NOTE | 2019-12-28 18:27 | EDM.PDOC ---
ED HPI GENERAL MEDICAL PROBLEM - General Chief Complaint: Laceration Stated Complaint: HAND LAC BETWEEN THUMB AND POINTER FINGER Time Seen by Provider: 12/28/19 18:22 Source of Information: Reports: Patient, Family (friend) History Limitations: Reports: No Limitations - History of Present Illness INITIAL COMMENTS - FREE TEXT/NARRATIVE: 34-year-old male presents to the ED with an acute laceration in the webspace between his thumb and Second finger of the left hand. 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 You occurred about 10 minutes ago. Tetanus toxoid is up-to-date within the last 2 years. He denies any other injuries. Onset: Today, Sudden Onset Date: 12/28/19 Onset Time: 18:05 Duration: Minutes: Location: Reports: Upper Extremity, Left (Left hand injury.) Quality: Reports: Ache, Burning Severity: Moderate Improves with: Reports: Rest Worsens with: Reports: Movement Context: Reports: Trauma (Skin in the first webspace between the thumb and the first digit suffered a laceration when he came in contact with the edge of a plastic fan blade on a motor vehicle.). Denies: Activity, Exercise, Lifting, Sick Contact Associated Symptoms: Reports: No Other Symptoms Treatments DECK HAND: Reports: Other (see below) (None.) Left Hand Pain Score (Numeric/FACES): 10 - Related Data Allergies Allergy/AdvReac Type Severity Reaction Status Date / Time No Known Allergies Allergy Verified 12/28/19 18:23 Home Meds: Home Meds . [No Known Home Meds] 12/28/19 [History] Past Medical History HEENT History: Reports: None Cardiovascular History: Reports: High Cholesterol, Hypertension Respiratory History: Reports: None Gastrointestinal History: Reports: Other (See Below) Other Gastrointestinal History: hank rectal and incision and drainage Genitourinary History: Reports: None STOCK TAKER History: Reports: None Musculoskeletal History: Reports: None Neurological History: Reports: None Psychiatric History: Reports: None Endocrine/Metabolic History: Reports: Diabetes, Type II (Really not taking any medication. Prior to this he was taking metformin), Other (See Below) Other Endocrine/Metabolic History: pancreatitis Hematologic History: Reports: None Immunologic History: Reports: None Oncologic (Cancer) History: Reports: None Dermatologic History: Reports: None - Past Surgical History Head Surgeries/Procedures: Reports: None HEENT Surgical History: Reports: None Cardiovascular Surgical History: Reports: None Respiratory Surgical History: Reports: None GI Surgical History: Reports: None Male Surgical History: Reports: None Endocrine Surgical History: Reports: None Neurological Surgical History: Reports: None Musculoskeletal Surgical History: Reports: None Oncologic Surgical History: Reports: None Social & Family History - Family History Family Medical History: Noncontributory Endocrine/Metabolic: Reports: Diabetes, Type I - Caffeine Use Caffeine Use: Reports: Coffee - Living Situation & Occupation Living situation: Reports: Occupation: Employed (He did work all day today.) ED ROS GENERAL - Review of Systems Review Of Systems: See Below Constitutional: Reports: No Symptoms HEENT: Reports: No Symptoms Respiratory: Reports: No Symptoms Cardiovascular: Reports: No Symptoms Endocrine: Reports: No Symptoms GI/Abdominal: Reports: No Symptoms : Reports: No Symptoms Musculoskeletal: Reports: No Symptoms Skin: Reports: No Symptoms Neurological: Reports: No Symptoms Psychiatric: Reports: No Symptoms Hematologic/Lymphatic: Reports: No Symptoms Immunologic: Reports: No Symptoms ED EXAM, SKIN/RASH Exam: See Below Exam Limited By: No Limitations General Appearance: Alert, WD/WN, Anxious, Moderate Distress, Other (Patient is very apprehensive. ) Extremities: Other (Examination was limited to his left hand. He has suffered a linear 3 cm laceration in the first webspace between the thumb and the index finger. It appears to be relatively subcutaneous without any evidence of tendon involvement. He can oppose his thumb to his fifth finger with pain.) Neurological: Alert, Oriented ( Will require laceration repair.), CN II-XII Intact, Normal Cognition Psychiatric: Normal Affect, Normal Mood Skin: Warm, Dry, Normal Color, No Rash, Other (Serration right hand) ED SKIN PROCEDURES - Laceration/Wound Repair Hand Appearance: Subcutaneous (Laceration is subcutaneous and linear between the first and second digits of the left hand in the webspace.), Linear, Mildly Contaminated Distal NVT: Neuro & Vascular Intact Local Anesthesia - Bupivicaine (Marcaine): 0.5% Plain Local Anesthetic Volume: Other Skin Prep: Chlorhexidine (Hibiciens) (Cc) Exploration/Debridement/Repair: Wound Explored Closed with: Sutures Lac/Wound length In cm: 3.5 Suture Size: 4-0 # of Sutures: 7 Suture Type: Nylon, Interrupted, Simple Course - Vital Signs Last Recorded V/S: Last Vital Signs Temp 36.5 C 12/28/19 18:17 Pulse 112 H 12/28/19 18:17 Resp 22 H 12/28/19 18:17 BP 143/120 H 12/28/19 18:17 Pulse Ox 100 12/28/19 18:17 - Orders/Labs/Meds Meds: Medications Discontinued Medications Generic Name Dose Route Start Last Admin Trade Name Christiano PRN Reason Stop Dose Admin Bupivacaine HCl 10 ml 12/28/19 18:22 Sensorcaine-Mpf 0.5% INJECT 12/28/19 18:23 ONETIME ONE - Radiology Interpretation Free Text/Narrative:: 34-year-old male presents to the ED with a light linear laceration in the webspace between his left thumb and left index finger. This occurred when the tissue came in contact with the edges of a plastic fan blade on a motor vehicle. He has full opposition of his thumb to his fingers although it is painful. Patient is very apprehensive about his injury. Plan I will numb up the area so that we can cleanse it appropriately and then the wound will require laceration repair. Initial inspection suggest is approximately 3 cm or perhaps a little longer in length. Tetanus toxoid is up-to-date. - Re-Assessments/Exams Free Text/Narrative Re-Assessment/Exam: 12/28/19 18:34 anesthetized his wound with 0.5% bupivacaine to allow proper cleansing of the wound which involves the subcutaneous tissues. Will be sutured under local anesthetic once it has been cleansed. 12/28/19 18:57 wound was cleansed and irrigated with Hibiclens and saline. Was then repaired under local anesthetic times seven 4-0 Ethilon sutures. Wound was dressed. He will cleanse the wound daily at home and apply topical antibiotic. Sutures will need to be removed in 10 days time. Departure - Departure Time of Disposition: 18:57 Disposition: Home, Self-Care 01 Condition: Fair Clinical Impression: Laceration of left hand Qualifiers: Encounter type: initial encounter Foreign body presence: without foreign body Qualified Code(s): S61.412A - Laceration without foreign body of left hand, initial encounter - Discharge Information *PRESCRIPTION DRUG MONITORING PROGRAM REVIEWED*: Not Applicable *COPY OF PRESCRIPTION DRUG MONITORING REPORT IN PATIENT DORITA: Not Applicable Referrals: PCP,None [Primary Care Provider] - Forms: ED Department Discharge Additional Instructions: Evaluation in the emergency room today in regards to a laceration in the webspace between the thumb and second finger of your left hand when the left hand came in contact with a fan on a motor vehicle. Wound was anesthetized using 0.5% bupivacaine and then cleansed with saline. Laceration was then sutured under local anesthetic times 7 sutures. Treatment at home is to daily cleanse the wound with soap and water. Showering is okay. The wound should not be soaked under water however. Then apply topical antibiotic such as bacitracin or Polysporin to the wound once daily and cover with a bandage to keep clean. Sutures will need to be removed in 10 days time by her primary care physician. Please make an appointment to have this procedure carried out. Notably can you walk into the walk-in clinic to have sutures removed in 10 days time. Sepsis Event Note (ED) - Focused Exam Vital Signs: Vital Signs Temp Pulse Resp BP Pulse Ox 12/28/19 18:17 36.5 C 112 H 22 H 143/120 H 100
== END 2019-12-28 19:11 | disposition home or self-care (01) ==
LOC: JD.ED 18:07
DX: S61.412A Laceration without foreign body of left hand, initial encounter (principal); I10 Essential (primary) hypertension; E11.9 Type 2 diabetes mellitus without complications; W26.8XXA Contact with other sharp object(s), not elsewhere classified, initial encounter; Y92.89 Other specified places as the place of occurrence of the external cause; Y99.0 Civilian activity done for income or pay
CPT/HCPCS: 12002; 99282; J3490

== ENCOUNTER 2022-11-10 16:58 | Emergency (ER) | payer SELFPAY ==
[2022-11-10] MEDS ORDERED: Sodium Chloride 0.9% 10 ML Syringe FLUSH PRN (17:37)
[2022-11-10] MEDS ORDERED: HYDROmorphone 1 MG/ML Syringe IVPUSH ONE (17:37)
[2022-11-10] MEDS ORDERED: Sodium Chloride 0.9% 1,000 ML IV ONE (17:37)
[2022-11-10] MEDS ORDERED: Ondansetron 4 MG/2 ML SDV IVPUSH ONE (17:37)
[2022-11-10] MEDS ORDERED: Iopamidol 612 MG/ML 100 ML Bottle IVPUSH ONE (18:07)
[2022-11-10 18:46] LABS: BASOPHILS ABSOLUTE AUTO 0.01 K/mm3 (0.01-0.08); BASOPHILS PERCENT AUTO 0.1 % (0.1-1.2); EOSINOPHILS ABSOLUTE AUTO 0.05 K/mm3 (0.04-0.54); EOSINOPHILS PERCENT AUTO 0.4 (0.8-7.0); HEMATOCRIT 44.6 % (40.1-51.0); IMMATURE GRAN ABSOLUTE AUTO 0.04 K/mm3 (0.00-0.10); IMMATURE GRAN PERCENT AUTO 0.3 % (<=1.0); LYMPHOCYTES PERCENT AUTO 9.9 % (21.8-53.1); MEAN CORPUSCULAR HEMOGLOBIN 29.9 pg (25.7-32.2); MEAN CORPUSCULAR HGB CONC 35.9 g/dl (32.2-35.5); MEAN PLATELET VOLUME 11.1 fl (9.4-12.3); MONOCYTES ABSOLUTE AUTO 0.72 K/mm3 (0.30-0.82); MONOCYTES PERCENT AUTO 5.1 % (5.3-12.2); NEUTROPHILS ABSOLUTE AUTO 11.96 K/mm3 (1.78-5.38); NEUTROPHILS PERCENT AUTO 84.2 % (34.0-67.9); PLATELET COUNT,PLT 207 K/mm3 (163-337); RED BLOOD CELL COUNT 5.35 M/mm3 (4.63-6.08); WHITE BLOOD CELL COUNT,WBC 14.18 K/mm3 (4.23-9.07)
[2022-11-10 18:55] LABS: MEAN CORPUSCULAR VOLUME 83.4 fl (79.0-92.2)
[2022-11-10 19:10] LABS: ALANINE AMINOTRANSFERASE,ALT 29 U/L (16-63); ALBUMIN 3.4 g/dl (3.4-5.0); ALKALINE PHOSPHATASE 61 U/L (46-116); ANION GAP 13.8 (5-15); ASPARTATE AMNIOTRANSFERASE,AST 12 U/L (15-37); BILIRUBIN TOTAL 0.9 mg/dL (0.2-1.0); BLOOD UREA NITROGEN,BUN 20 mg/dL (7-18); BUN/CREATININE RATIO 22.2 (14-18); C-REACTIVE PROTEIN <0.2 mg/dL (<1.0); CALCIUM 7.6 mg/dL (8.5-10.1); CARBON DIOXIDE,CO2 22 mEq/L (21-32); CHLORIDE,CL 101 mEq/L (98-107); CREATININE 0.9 mg/dL (0.7-1.3); EST CRCL DRUG DOSING (CG) 117.16 mL/min; ESTIMATED GFR 114 mL/min (>60); GLUCOSE RANDOM 239 mg/dL (70-99); LIPASE 89 U/L (73-393); MAGNESIUM 1.6 mg/dL (1.8-2.4); POTASSIUM,K 3.8 mEq/L (3.5-5.1); PROTEIN TOTAL,TP 6.7 g/dl (6.4-8.2); SODIUM,NA 133 mEq/L (136-145)
[2022-11-10 20:11] LABS: APPEARANCE,URINE CLEAR (Clear); BILIRUBIN,URINE NEGATIVE (Negative); COLOR,URINE YELLOW (Yellow); GLUCOSE,URINE TRACE (Negative); KETONES,URINE 1+ (Negative); LEUKOCYTE ESTERASE,URINE NEGATIVE (Negative); NITRITE,URINE NEGATIVE (Negative); OCCULT BLOOD,URINE NEGATIVE (Negative); PH,URINE 5.5 (5.0-8.0); PROTEIN,URINE 2+ (Negative); UROBILINOGEN,URINE 0.2 (0.2-1.0)
[2022-11-10 20:18] LABS: BACTERIA,URINE FEW /hpf (FEW); EPITHELIAL CELLS,URINE NOT SEEN /hpf (0-5); MUCUS,URINE FEW /hpf (FEW); RBC,URINE 0-5 /hpf (0-5); WBC,URINE 0-5 /hpf (0-5)
== END 2022-11-10 21:40 | disposition home or self-care (01) ==
LOC: JD.ED 16:58
DX: R10.13 Epigastric pain (principal); R11.2 Nausea with vomiting, unspecified; I10 Essential (primary) hypertension; E11.9 Type 2 diabetes mellitus without complications
CPT/HCPCS: 36415; 74177; 80053; 81001; 83690; 83735; 85025; 86140; 96361; 96374; 96375; 99284; J1170; J2405; J3490; J7030; Q9967

== ENCOUNTER 2023-02-09 10:03 | Day surgery (SDC) | payer BC ==
[~2023-02-09 10:03] MED LIST: Lactated Ringers 1,000 ML IV SCH
[2023-02-09] MEDS ORDERED: Ondansetron 4 MG/2 ML SDV IVPUSH PRN (10:58)
[2023-02-09] MEDS ORDERED: fentaNYL 100 MCG/2 ML SDV IVPUSH PRN (10:58)
[2023-02-09] MEDS ORDERED: HYDROmorphone 0.5 MG/0.5 ML Syringe IVPUSH PRN (10:58)
[2023-02-09] MEDS ORDERED: Midazolam 1 MG/ML 2 ML SDV ONE (11:11)
[2023-02-09] MEDS ORDERED: Propofol 200 MG/20 ML SDV ONE (11:11)
[2023-02-09] MEDS ORDERED: fentaNYL 100 MCG/2 ML SDV ONE (11:11)
[2023-02-09] MEDS ORDERED: Lidocaine 1% 2 ML ONE (11:13)
[2023-02-09] MEDS ORDERED: Bupivacaine 0.5% 30 ML SDV ONE (11:17)
[2023-02-09] MEDS ORDERED: Bupivacaine 0.5%/EPINEPHrine 1:200,000 50 ML MDV ONE (11:20)
[2023-02-09] MEDS ORDERED: ceFAZolin 2 GM Vial ONE (11:33)
[2023-02-09] MEDS ORDERED: Ondansetron 4 MG/2 ML SDV ONE (11:56)
[2023-02-09] MEDS ORDERED: Dexamethasone 4 MG/ML 5 ML MDV ONE (11:56)
== END 2023-02-09 13:32 | disposition home or self-care (01) ==
LOC: JD.SDS 10:03
PROVIDERS: ATTEND Surgery
DX: K61.1 Rectal abscess (principal); F41.9 Anxiety disorder, unspecified; F32.A Depression, unspecified; E78.1 Pure hyperglyceridemia; E11.9 Type 2 diabetes mellitus without complications; E55.9 Vitamin D deficiency, unspecified; Z79.82 Long term (current) use of aspirin; Z79.84 Long term (current) use of oral hypoglycemic drugs; Z79.899 Other long term (current) drug therapy; Z79.85 Long-term (current) use of injectable non-insulin antidiabetic drugs; Z87.891 Personal history of nicotine dependence
CPT/HCPCS: 36415; 46040; 82947; J0690; J1100; J2250; J2405; J2704; J3010; J3490; J7120; 00902; 87147